=== PATIENT | female | born 1990 | race Caucasian/White ===

== ENCOUNTER 2018-07-19 14:24 | Outpatient (CLI) | payer BC, SELFPAY ==
[2018-07-19 16:16] LABS: FREE T4 1.07 ng/dL (0.76-1.46); TSH 0.95 uIU/mL (0.358-3.74)
== END 2018-07-19 14:44 ==
PROVIDERS: PCP Nurse Practitioner Family; Visit Provider Nurse Practitioner Family
DX: E03.9 Hypothyroidism, unspecified (principal)
CPT/HCPCS: 36415; 84439; 84443

== ENCOUNTER 2018-08-24 13:58 | Outpatient (CLI) | payer BC, SELFPAY ==
[2018-08-24 14:41] LABS: Abs Immature Grans 0.01 k/cumm (0.0-0.09); Absolute Basophil Count 0.02 k/cumm (0.0-0.2); Absolute Eosinophil Count 0.05 k/cumm (0.0-0.7); Absolute Lymphocyte Count 1.17 k/cumm (1.2-3.4); Absolute Monocyte Count 0.37 k/cumm (0.11-0.7); Absolute Neutrophil Count 4.84 k/cumm (1.2-6.7); Basophils % 0.3; Eosinophils % 0.8; HCT 37.4 % (36.0-46.0); HGB 13.3 g/dL (12.0-15.5); Immature Grans % 0.2; Lymphocytes % 18.1; Mean Corp. HGB Concentration 35.6 g/dL (32.0-36.0); Mean Corpuscular Volume 87.2 fL (80-95); Mean Platelet Volume 10.6 fL (8.0-11.0); Monocytes % 5.7; Neutrophils % 74.9; Platelet Count 198 x1000/uL (130-400); RBC 4.29 m/cumm (4.00-5.20); RBC Distribution Width 12.2 % (11.7-14.6); White Blood Cell Count 6.46 k/cumm (4.4-10.8)
[2018-08-24 16:48] LABS: TSH (W/Ref FT4) 5.07 uIU/mL (0.358-3.74)
[2018-08-24 17:58] LABS: FREE T4 1.08 ng/dL (0.76-1.46)
[2018-08-27 09:40] LABS: Hepatitis C Ab w Rflx HCV PCR Negative (NEGAT)
[2018-08-27 11:21] LABS: Hepatitis B Surface Ag Negative (NEGAT)
[2018-08-27 11:26] LABS: HIV-1/2 Ag & Ab Screen Negative (NEGAT)
[2018-08-27 12:13] LABS: Syphilis Serology (RPR) Negative (Negative); Varicella IgG Antibody Positive
[2018-08-27 13:28] LABS: Rubella IgG Ab (UVM) Negative
== END 2018-08-24 14:18 ==
PROVIDERS: PCP Nurse Practitioner Family; Visit Provider Advanced Practice Midwife
DX: Z34.91 Encounter for supervision of normal pregnancy, unspecified, first trimester (principal); Z11.59 Encounter for screening for other viral diseases; Z11.4 Encounter for screening for human immunodeficiency virus [HIV]; Z01.84 Encounter for antibody response examination
CPT/HCPCS: 36415; 80055; 86787; 86803; 86850; 86900; 86901; 87340; 87389; 84439; 84443; 86592; 86762

== ENCOUNTER 2018-08-24 15:06 | Outpatient (REF) | payer BC, SELFPAY ==
[2018-08-24 17:00] LABS: *AMPHETAMINES SCREEN URINE Negative (Negative); *BARBITURATES SCREEN URINE Negative (Negative); *BENZODIAZEPINES SCREEN URINE Negative (Negative); Cannabinoids THC Negative (Negative); Cocaine Screen,Urine Negative (Negative); METHADONE URINE SCREEN Negative (Negative); OPIATES URINE SCREEN Negative (Negative)
[2018-08-24 17:03] LABS: Tricyclic Antidepressants Negative (Negative)
[2018-08-27 15:22] LABS: Chlamydia Result Negative; GC Result Negative; Specimen Description CERVIX
[2018-08-28 10:15] LABS: Buprenorphine Negative; Norbuprenorphine Negative
== END 2018-08-24 15:26 ==
LOC: LBN 15:06
PROVIDERS: PCP Nurse Practitioner Family; Visit Provider Advanced Practice Midwife
DX: Z34.91 Encounter for supervision of normal pregnancy, unspecified, first trimester (principal); Z11.3 Encounter for screening for infections with a predominantly sexual mode of transmission
CPT/HCPCS: 80307; 87491; 87591; 87086

== ENCOUNTER 2018-09-05 15:51 | Outpatient (CLI) | payer BC, SELFPAY ==
[2018-09-05 20:14] LABS: Kit/Specimen SENT
== END 2018-09-05 16:11 ==
PROVIDERS: PCP Nurse Practitioner Family; Visit Provider Advanced Practice Midwife
DX: Z34.91 Encounter for supervision of normal pregnancy, unspecified, first trimester (principal); Z36.89 Encounter for other specified antenatal screening

== ENCOUNTER 2018-10-26 00:48 | Outpatient (CLI) | payer BC, SELFPAY ==
--- NOTE | 2018-10-26 12:55 | DI.US_ITS ---
SYMPTOMS/DIAGNOSIS: 18-WEEK ANATOMY ULTRASOUND, Z34.90 OB ULTRASOUND: Many abnormalities cannot be diagnosed. A normal exam does not exclude a congenital anomaly. Radiology No. [id number] LMP: Exam Date: 10/26/18 [facility] wks days on EDC ([facility]) Confirmed: HISTORY: PREDICTED GESTATIONAL AGE NUMBER 18+1 weeks with a range of 17+1 weeks to 19+1 weeks. 1 Determined by__X_1ST US___LMP___HISTORY PLACENTA PRESENTATION Grade I Cephalic___ Anterior___Posterior_X__ Breech____ Right Left__X Transverse(head right___ Fundal_X__Low-lying___Previa___ Transverse(head left___ Varying__X____ BIOMETRY AMNIOTIC FLUID BPD: 42 mm 18+4 weeks Normal HC: 157 mm 18+4 weeks AC: 120 mm 17+5 weeks FL: 27 mm 18+1 weeks AMNIOTIC FLUID INDEX >26 WK CRL: mm weeks Cisterna Magna: 3 mm CI: 83 RUQ: LUQ Cerebellum: 1.8 cm EFW: 220 grams Percentile: 37th RLQ: LLQ Total: cms Composite AGE= 18+2 wks EDC by US: 03/27/19 BIOPHYSICAL PROFILE ANATOMY IDENTIFIED SCORE 0/2 Heart: 4-Chamber_X__Rate:BPM 153 LVOT:____X RVOT:___X Amniotic Fluid(>2cms)____ Stomach:__X Kidneys:___X____ Respirations (>30 secs) Bladder:__X Post. Fossa:__X Body Flex/Extension 3-vessel cord:__X Ventricles:___X Cord insertion:__X___ Lips:_X___ Extremity Flex/Extension Spinal morphology:_X Nose:_X___ Total Score= Palate:___X____ NS=not seen COMMENTS: The fetus was in variable position. The placenta is fundal and left- sided. The biometric measurements correspond to 18 weeks 2 days and an EDC of March,. The amount of amniotic fluid appears normal. No abnormalities were identified. IMPRESSION: survey is within normal limits.
== END 2018-10-26 01:08 ==
PROVIDERS: PCP Nurse Practitioner Family; Visit Provider Advanced Practice Midwife
DX: Z34.92 Encounter for supervision of normal pregnancy, unspecified, second trimester (principal)
CPT/HCPCS: 76805

== ENCOUNTER 2018-11-16 13:50 | Outpatient (CLI) | payer BC, SELFPAY ==
[2018-11-16 15:02] LABS: TSH (W/Ref FT4) 1.82 uIU/mL (0.358-3.74)
== END 2018-11-16 14:10 ==
PROVIDERS: Advanced Practice Midwife; PCP Nurse Practitioner Family; Visit Provider Obstetrics & Gynecology
DX: Z34.81 Encounter for supervision of other normal pregnancy, first trimester (principal); E03.9 Hypothyroidism, unspecified
CPT/HCPCS: 36415; 80055; 86787; 86803; 86900; 86901; 87340; 87389; 84443; 86592; 86762

== ENCOUNTER 2019-01-04 08:48 | Outpatient (CLI) | payer BC, SELFPAY ==
[2019-01-04 09:29] LABS: Glucose,1 Hr (Glucola) 174 mg/dL (80-140); HCT 33.4 % (36.0-46.0); HGB 11.6 g/dL (12.0-15.5); Mean Corp. HGB Concentration 34.7 g/dL (32.0-36.0); Mean Corpuscular Hemoglobin 31.5 pg (27.0-33.0); Mean Corpuscular Volume 90.8 fL (80-95); Mean Platelet Volume 11.2 fL (8.0-11.0); Platelet Count 161 x1000/uL (130-400); RBC 3.68 m/cumm (4.00-5.20); RBC Distribution Width 12.9 % (11.7-14.6); White Blood Cell Count 6.43 k/cumm (4.4-10.8)
[2019-01-04 10:54] LABS: FREE T4 1.09 ng/dL (0.76-1.46); TSH 1.51 uIU/mL (0.358-3.74)
== END 2019-01-04 09:08 ==
PROVIDERS: Advanced Practice Midwife; PCP Nurse Practitioner Family; Visit Provider Advanced Practice Midwife
DX: Z34.93 Encounter for supervision of normal pregnancy, unspecified, third trimester (principal); E05.00 Thyrotoxicosis with diffuse goiter without thyrotoxic crisis or storm; Z01.84 Encounter for antibody response examination; E03.9 Hypothyroidism, unspecified
CPT/HCPCS: 36415; 82950; 85027; 86850; 90384; 84439; 84443

== ENCOUNTER 2019-01-07 02:26 | Outpatient (CLI) | payer BC, SELFPAY ==
[2019-01-07 12:26] LABS: Glucose 3 Hour 131 mg/dL
[2019-01-07 15:13] LABS: Glucose 1 Hour 164 mg/dL
== END 2019-01-07 02:46 ==
PROVIDERS: PCP Nurse Practitioner Family; Visit Provider Advanced Practice Midwife
DX: Z34.93 Encounter for supervision of normal pregnancy, unspecified, third trimester (principal)
CPT/HCPCS: 36410; 82951

== ENCOUNTER 2019-01-23 11:19 | Outpatient (CLI) | payer BC, SELFPAY ==
[2019-01-25 16:33] LABS: Thyroid Stimulating Immunoglob 4.9 TSI index (<=1.3)
== END 2019-01-23 11:39 ==
PROVIDERS: PCP Nurse Practitioner Family; Visit Provider Obstetrics & Gynecology Maternal & Fetal Medicine
DX: E05.00 Thyrotoxicosis with diffuse goiter without thyrotoxic crisis or storm (principal)
CPT/HCPCS: 36415; 84445

== ENCOUNTER 2019-02-12 00:51 | Outpatient (CLI) | payer BC, SELFPAY ==
--- NOTE | 2019-02-12 08:18 | DI.US_ITS ---
Many abnormalities cannot be diagnosed. A normal exam does not exclude a congenital anomaly. Radiology No. LMP: Exam Date: 02/12/19 [facility] wks days on EDC ([facility]) Confirmed: HISTORY: H/O GRAVES DISEASE, CHECK GOITER AND RENAL SYSTEM,Z86.39 PREDICTED GESTATIONAL AGE NUMBER 33.5 weeks with a range of 32.5 week to 34.5 weeks. 1 Determined by_X__1STUS___LMP___HISTORY Info. pertaining to fetus # PLACENTA PRESENTATION Grade II Cephalic__X_ Anterior___Posterior__X_ Breech____ Right Left Transverse(head right___ Fundal___Low-lying___Previa___ Transverse(head left___ Varying BIOMETRY AMNIOTIC FLUID BPD: mm weeks Normal HC: mm weeks Oligo Polyhydramnios AC: mm weeks FL: mm weeks AMNIOTIC FLUID INDEX >26 WK CRL: mm weeks Cisterna Magna: mm CI: RUQ: LUQ Cerebellum: cm EFW: grams Percentile RLQ: LLQ Total: cms Composite AGE= wks EDC by US___03/28/19 BIOPHYSICAL PROFILE ANATOMY IDENTIFIED SCORE 0/2 Heart: 4-Chamber___Rate:BPM__140___ LVOT: RVOT: Amniotic Fluid(>2cms)____ Stomach: Kidneys:___X____ Respirations (>30 secs) Bladder: X__ Post. Fossa: Body Flex/Extension 3 vessel cord: Ventricles: cord insertion: Lips:____ Extremity Flex/Extension spinal morphology: Nose: Total Score= Palate: NS=not seen Limited OB ultrasound was performed. There is a single living intrauterine gestation. The fetus is in the cephalic presentation. heart rate is 140 beats per minute. A complete anatomic evaluation was not performed at this time. Evaluation of the kidneys shows the AP diameter of the right kidney to measure 0.7 cm. The left renal collecting system is within normal limits. The urinary bladder is unremarkable. The neck could not be well visualized due to the lie of the fetus. Placenta is posterior without evidence of previa. IMPRESSION: Single intrauterine gestation. AP diameter of the right renal collecting system is 0.7 cm. Follow up is recommended. Inadequate visualization of the neck due to the lie.
== END 2019-02-12 01:11 ==
PROVIDERS: PCP Nurse Practitioner Family; Visit Provider Advanced Practice Midwife
DX: O99.283 Endocrine, nutritional and metabolic diseases complicating pregnancy, third trimester (principal); E05.00 Thyrotoxicosis with diffuse goiter without thyrotoxic crisis or storm; Z34.93 Encounter for supervision of normal pregnancy, unspecified, third trimester
CPT/HCPCS: 76815

== ENCOUNTER 2019-02-12 09:46 | Outpatient (CLI) | payer BC, SELFPAY | END 2019-02-12 10:06 | PROVIDERS: PCP Nurse Practitioner Family; Visit Provider Advanced Practice Midwife | DX: O99.283 Endocrine, nutritional and metabolic diseases complicating pregnancy, third trimester (principal); E89.0 Postprocedural hypothyroidism; W88.1XXA Exposure to radioactive isotopes, initial encounter; Z3A.33 33 weeks gestation of pregnancy | CPT/HCPCS: 59025 ==

== ENCOUNTER 2019-02-15 12:51 | Outpatient (CLI) | payer BC, SELFPAY | END 2019-02-15 13:11 | PROVIDERS: PCP Nurse Practitioner Family; Visit Provider Advanced Practice Midwife | DX: O99.283 Endocrine, nutritional and metabolic diseases complicating pregnancy, third trimester (principal); E89.0 Postprocedural hypothyroidism; W88.1XXA Exposure to radioactive isotopes, initial encounter; Z3A.34 34 weeks gestation of pregnancy | CPT/HCPCS: 59025 ==

== ENCOUNTER 2019-02-19 00:31 | Outpatient (CLI) | payer BC, SELFPAY ==
--- NOTE | 2019-02-19 10:27 | DI.US_ITS ---
SYMPTOM/DIAGNOSIS: F/U 02/12, REPEAT, RECHECK GOITER NECK/EFW OB ULTRASOUND: A viable cephalic henderson is demonstrated. The amniotic fluid index is 12.9 The cardiac rate is 152 BPM. The estimated weight is 2282 grams which is at the 22nd percentile. The estimated age is 34 weeks and 2 days. A posterior placenta is noted. Attempts to image thyroid were made. No gross abnormality is seen, however, if there is further specific clinical question then re-evaluation of this patient with a repeat examination at the [facility] could be obtained for further review. Many abnormalities cannot be diagnosed. A normal exam does not exclude a congenital anomaly. Radiology No. [id number] LMP: Exam Date: 02/19/19 [facility] wks on [facility] ([facility]) 03/31/19 Confirmed: HISTORY: PREDICTED GESTATIONAL AGE NUMBER 34 +5 weeks with a range of 33 +5 week to 36 +5 weeks. 1 Determined by XX___1STUS___LMP___HISTORY Info. pertaining to fetus # PLACENTA PRESENTATION Grade II Cephalic__XX_ Anterior___Posterior_XX__ Breech____ Right Left Transverse(head right___ Fundal___Low-lying___Previa___ Transverse(head left___ Varying BIOMETRY AMNIOTIC FLUID BPD: 87 mm 32 +5 weeks Normal HC: 313 mm 33 +6 weeks AC: 300 mm 35 +0 weeks FL: 63 mm 33 +6 weeks AMNIOTIC FLUID INDEX >26 WK CRL: mm weeks Cisterna Magna: mm CI: 84 RUQ:__3.04____LUQ___3.12 Cerebellum: cm EFW: 2282 grams 22% Percentile RLQ:_ 4.46 LLQ___2.30____ Total:__12.9 cms Composite AGE= 34 +2 wks EDC by US__03/31/19 BIOPHYSICAL PROFILE ANATOMY IDENTIFIED SCORE 0/2 Heart: 4-Chamber___Rate:BPM__152 ___ LVOT: RVOT: Amniotic Fluid(>2cms)____ Stomach: Kidneys: Respirations (>30 secs) Bladder:___XX Post. Fossa: Body Flex/Extension 3 vessel cord: Ventricles: cord insertion: Lips:____ Extremity Flex/Extension spinal morphology: Nose: Total Score= Palate: NS=not seen
== END 2019-02-19 00:51 ==
PROVIDERS: PCP Nurse Practitioner Family; Visit Provider Advanced Practice Midwife
DX: Z34.93 Encounter for supervision of normal pregnancy, unspecified, third trimester (principal); Z36.2 Encounter for other antenatal screening follow-up; E05.00 Thyrotoxicosis with diffuse goiter without thyrotoxic crisis or storm
CPT/HCPCS: 76815

== ENCOUNTER 2019-02-19 09:04 | Outpatient (CLI) | payer BC, SELFPAY | END 2019-02-19 09:24 | PROVIDERS: PCP Nurse Practitioner Family; Visit Provider Advanced Practice Midwife | DX: O99.283 Endocrine, nutritional and metabolic diseases complicating pregnancy, third trimester (principal); E89.0 Postprocedural hypothyroidism; W88.1XXA Exposure to radioactive isotopes, initial encounter; Z3A.34 34 weeks gestation of pregnancy | CPT/HCPCS: 59025 ==

== ENCOUNTER 2019-02-19 14:43 | Outpatient (CLI) | payer BC, SELFPAY ==
[2019-02-19 15:28] LABS: HCT 34.7 % (36.0-46.0); HGB 11.8 g/dL (12.0-15.5); Mean Corpuscular Hemoglobin 30.8 pg (27.0-33.0); Mean Corpuscular Volume 90.6 fL (80-95); Mean Platelet Volume 11.7 fL (8.0-11.0); Platelet Count 176 x1000/uL (130-400); RBC 3.83 m/cumm (4.00-5.20); RBC Distribution Width 13.3 % (11.7-14.6); White Blood Cell Count 6.31 k/cumm (4.4-10.8)
[2019-02-19 15:58] LABS: PROTEIN < 6.0 mg/dL
[2019-02-19 16:06] LABS: FREE T4 1.08 ng/dL (0.76-1.46)
[2019-02-19 16:09] LABS: ALT 22 U/L (12-78); AST 15 U/L (15-37); Albumin 2.8 g/dL (3.4-5.0); Alkaline Phosphatase 126 U/L (46-116); Bilirubin, Direct 0.06 mg/dL (0.00-0.20); Bilirubin, Total 0.2 mg/dL (0.2-1.0); CREATININE 0.58 mg/dL (0.55-1.02); TSH 1.16 uIU/mL (0.358-3.74); Total Protein 6.1 g/dL (6.4-8.2); Uric Acid 3.6 mg/dL (2.6-6.0)
[2019-02-19 16:32] LABS: COMMENT (LAB VIEW ONLY) 28.28 mg/dL
== END 2019-02-19 15:03 ==
PROVIDERS: Advanced Practice Midwife; PCP Nurse Practitioner Family; Visit Provider Advanced Practice Midwife
DX: O99.283 Endocrine, nutritional and metabolic diseases complicating pregnancy, third trimester (principal); E03.9 Hypothyroidism, unspecified; Z34.93 Encounter for supervision of normal pregnancy, unspecified, third trimester
CPT/HCPCS: 36415; 80076; 85027; 82565; 84156; 84439; 84443; 84550

== ENCOUNTER 2019-02-22 13:16 | Outpatient (CLI) | payer BC, SELFPAY | END 2019-02-22 13:36 | PROVIDERS: PCP Nurse Practitioner Family; Visit Provider Advanced Practice Midwife | DX: O99.283 Endocrine, nutritional and metabolic diseases complicating pregnancy, third trimester (principal); E89.0 Postprocedural hypothyroidism; W88.1XXA Exposure to radioactive isotopes, initial encounter | CPT/HCPCS: 59025 ==

== ENCOUNTER 2019-02-26 07:12 | Outpatient (CLI) | payer BC, SELFPAY | END 2019-02-26 07:32 | PROVIDERS: PCP Nurse Practitioner Family; Visit Provider Advanced Practice Midwife | DX: O99.283 Endocrine, nutritional and metabolic diseases complicating pregnancy, third trimester (principal); O36.5930 Maternal care for other known or suspected poor fetal growth, third trimester, not applicable or unspecified; E89.0 Postprocedural hypothyroidism; W88.1XXA Exposure to radioactive isotopes, initial encounter; Z3A.35 35 weeks gestation of pregnancy | CPT/HCPCS: 59025; 87081 ==

== ENCOUNTER 2019-03-01 07:39 | Outpatient (CLI) | payer BC, SELFPAY | END 2019-03-01 07:59 | PROVIDERS: PCP Nurse Practitioner Family; Visit Provider Advanced Practice Midwife | DX: O99.283 Endocrine, nutritional and metabolic diseases complicating pregnancy, third trimester (principal); E89.0 Postprocedural hypothyroidism; W88.1XXA Exposure to radioactive isotopes, initial encounter; Z3A.36 36 weeks gestation of pregnancy | CPT/HCPCS: 59025 ==

== ENCOUNTER 2019-03-05 10:17 | Outpatient (CLI) | payer BC, SELFPAY | END 2019-03-05 10:37 | PROVIDERS: PCP Nurse Practitioner Family; Visit Provider Advanced Practice Midwife | DX: O99.283 Endocrine, nutritional and metabolic diseases complicating pregnancy, third trimester (principal); E89.0 Postprocedural hypothyroidism; W88.1XXA Exposure to radioactive isotopes, initial encounter; Z3A.36 36 weeks gestation of pregnancy | CPT/HCPCS: 59025 ==

== ENCOUNTER 2019-03-08 14:07 | Outpatient (CLI) | payer BC, SELFPAY | END 2019-03-08 14:27 | PROVIDERS: PCP Nurse Practitioner Family; Visit Provider Advanced Practice Midwife | DX: O99.283 Endocrine, nutritional and metabolic diseases complicating pregnancy, third trimester (principal); E89.0 Postprocedural hypothyroidism; Z3A.37 37 weeks gestation of pregnancy | CPT/HCPCS: 59025 ==

== ENCOUNTER 2019-03-12 08:00 | Outpatient (CLI) | payer BC, SELFPAY | END 2019-03-12 08:20 | PROVIDERS: PCP Nurse Practitioner Family; Visit Provider Advanced Practice Midwife | DX: O99.283 Endocrine, nutritional and metabolic diseases complicating pregnancy, third trimester (principal); E89.0 Postprocedural hypothyroidism; W88.1XXA Exposure to radioactive isotopes, initial encounter; Z3A.37 37 weeks gestation of pregnancy | CPT/HCPCS: 59025 ==

== ENCOUNTER 2019-03-15 14:09 | Outpatient (CLI) | payer BC, SELFPAY | END 2019-03-15 14:29 | PROVIDERS: PCP Nurse Practitioner Family; Visit Provider Advanced Practice Midwife | DX: O99.283 Endocrine, nutritional and metabolic diseases complicating pregnancy, third trimester (principal); E89.0 Postprocedural hypothyroidism; W88.1XXA Exposure to radioactive isotopes, initial encounter; O36.8130 Decreased fetal movements, third trimester, not applicable or unspecified; Z3A.38 38 weeks gestation of pregnancy | CPT/HCPCS: 59025 ==

== ENCOUNTER 2019-03-19 01:06 | Outpatient (CLI) | payer BC, SELFPAY ==
--- NOTE | 2019-03-19 06:47 | DI.US_ITS ---
Predicted Gestational Age: Indication/History:GRAVES DISEASE,E03.9,Z86.39, SIZE LESS THAN DATES, CHECK GROWTH AND TESS 38.5 Wks Range: 37.5 to 39.5 Prior US done on: Determined by: First US X LMP History EDC by prior US: 03/28/19 For multiple gestations: Baby PLACENTA: Grade: II Location: Anterior Posterior X PRESENTATION: RT LT LOW LYING PREVIA Cephalic X Trans (Head RT LT ) Varied Breech BIOMETRY: Anatomy Identified: BPD: 94 mm 38.2 wks 4 chamber Heart Heart Rate 155 BPM HC: 332 mm 37.6 wks LVOT Post Fossa AC: 341 mm 38.0 wks RVOT Ventricles FL: 74 mm 37.4 wks Stomach Nose Bladder Lips Cisterna Magna: mm CI: 84 Kidneys Palate Cerebellum: mm 3 vessel cord Spine EFW: 3343 grms 47TH % Cord Insertion NS= not seen Composite Age (US) 38.0 wks Many abnormalities cannot be diagnosed. A normal exam does not exclude congenital abnormality. EDC by US 04/02/19 Amniotic Fluid Index: Normal COMMENTS: RUQ: 3.69 LUQ: 3.55 RLQ: 3.46 LLQ: 2.74 Total: 13.4 cm Biophysical Profile: Score 0/2 TESS (>2cm) 2___ Respirations (>30 sec) 2___ Body flexion/extension 2___ Extremity flexion/extension 2__ TOTAL SCORE ____8____ The biophysical profile is normal with a total score of 8. IMPRESSION: Normal biophysical profile. Comparison is made with 02/19/19. The fetus is in cephalic position. The placenta is posterior. The biometric measurements correspond to 38 weeks 0 days. The estimated weight is 3343 grams, near the 50th percentile. The amniotic fluid index is normal at 13.4. IMPRESSION: size and weight as well as TESS are within the normal range.
== END 2019-03-19 01:26 ==
PROVIDERS: PCP Nurse Practitioner Family; Visit Provider Advanced Practice Midwife
DX: O99.283 Endocrine, nutritional and metabolic diseases complicating pregnancy, third trimester (principal); E03.9 Hypothyroidism, unspecified; O26.843 Uterine size-date discrepancy, third trimester
CPT/HCPCS: 76815; 76816; 76819

== ENCOUNTER 2019-03-19 07:33 | Outpatient (CLI) | payer BC, SELFPAY | END 2019-03-19 07:53 | PROVIDERS: PCP Nurse Practitioner Family; Visit Provider Advanced Practice Midwife | DX: O99.283 Endocrine, nutritional and metabolic diseases complicating pregnancy, third trimester (principal); E89.0 Postprocedural hypothyroidism; W88.1XXA Exposure to radioactive isotopes, initial encounter; Z3A.38 38 weeks gestation of pregnancy | CPT/HCPCS: 59025 ==

== ENCOUNTER 2019-03-22 13:35 | Outpatient (CLI) | payer BC, SELFPAY | END 2019-03-22 13:55 | PROVIDERS: PCP Nurse Practitioner Family; Visit Provider Advanced Practice Midwife | DX: O99.283 Endocrine, nutritional and metabolic diseases complicating pregnancy, third trimester (principal); E89.0 Postprocedural hypothyroidism; W88.1XXA Exposure to radioactive isotopes, initial encounter; Z3A.39 39 weeks gestation of pregnancy | CPT/HCPCS: 59025 ==

== ENCOUNTER 2019-03-26 07:26 | Outpatient (CLI) | payer BC, SELFPAY ==
--- NOTE | 2019-03-26 12:23 | DI.US_ITS ---
SYMPTOMS/DIAGNOSIS: VARIABLE DECEL, BEDSIDE TESS IN CENTER 4.9, ? OLIGO OB ULTRASOUND: Predicted Gestational Age: Indication/History: 39+5 Wks Range: 38+5 to 40+5 Prior US done on: Determined by: First US LMP History EDC by prior US: 03/28/19 For multiple gestations: Baby PLACENTA: Grade: I Location: Anterior X Posterior PRESENTATION: RT LT LOW LYING PREVIA X FUNDAL Cephalic X Trans (Head RT LT ) Varied Breech BIOMETRY: Anatomy Identified: BPD: 97 mm 39+6 wks 4 chamber Heart Heart Rate 145 BPM HC: 348 mm 40+3 wks LVOT Post Fossa AC: 353 mm 39+2 wks RVOT Ventricles FL: 78 mm 39+5 wks Stomach Nose Bladder Lips Cisterna Magna: mm CI: 85 Kidneys Palate Cerebellum: mm 3 vessel cord Spine EFW: 3817 grms 71% Cord Insertion NS= not seen Composite Age (US) 39+6 wks Many abnormalities cannot be diagnosed. A normal exam does not exclude congenital abnormality. EDC by US 03/27/19 Amniotic Fluid Index: Oligo Normal COMMENTS: Some hydro seen, rt kidney wi renal pelvis = 0.9 cm. Normal- appearing lt kidney RUQ: 1.9 LUQ: 1.3 RLQ: 1.9 LLQ: 0 Total: cm Biophysical Profile: Score 0/2 TESS (>2cm) Respirations (>30 sec) Body flexion/extension Extremity flexion/extension TOTAL SCORE A cephalic intrauterine henderson is demonstrated. The amniotic fluid index is 5.1, which is borderline normal. The measurements suggest a gestational age of 39 weeks and 6 days. The cardiac rate is 145 beats per minute. Note is made of apparent severe right hydronephrosis and considerable dilatation of the proximal right ureter. The left kidney appears unremarkable. These findings were conveyed to the patient's caregiver immediately following the examination.
== END 2019-03-26 07:46 ==
PROVIDERS: PCP Nurse Practitioner Family; Visit Provider Advanced Practice Midwife
DX: O36.8331 Maternal care for abnormalities of the fetal heart rate or rhythm, third trimester, fetus 1 (principal); O35.8XX1 Maternal care for other (suspected) fetal abnormality and damage, fetus 1; Z34.93 Encounter for supervision of normal pregnancy, unspecified, third trimester; O99.283 Endocrine, nutritional and metabolic diseases complicating pregnancy, third trimester; E89.0 Postprocedural hypothyroidism; W88.1XXA Exposure to radioactive isotopes, initial encounter; Z3A.35 35 weeks gestation of pregnancy
CPT/HCPCS: 76816; 59025

== ENCOUNTER 2019-03-26 13:30 | Inpatient (IN) | payer BC, SELFPAY ==
[2019-03-26 15:01] LABS: HCT 34.9 % (36.0-46.0); Mean Corp. HGB Concentration 34.4 g/dL (32.0-36.0); Mean Corpuscular Volume 90.2 fL (80-95); Mean Platelet Volume 12.1 fL (8.0-11.0); Platelet Count 185 x1000/uL (130-400); RBC 3.87 m/cumm (4.00-5.20); RBC Distribution Width 13.2 % (11.7-14.6); White Blood Cell Count 6.22 k/cumm (4.4-10.8)
[2019-03-26] MEDS: Acetaminophen 500 MG TAB PO ×2 (15:09→19:34)
[2019-03-26] MEDS: Normal Saline Flush 10 ML SYR (15:14)
[2019-03-26] MEDS: Penicillin G POT. 5,000,000 UNITS in Normal Saline 100 ML 200 UNITS IVPB (16:29)
[2019-03-26] MEDS: Lactated Ringers 1,000 ML 30 ML IV (16:40)
[2019-03-26] MEDS: Normal Saline Flush 10 ML SYR IVP ×2 (17:50→18:34)
[2019-03-27] MEDS: Normal Saline Flush 10 ML SYR IVP ×3 (08:43→19:44)
[2019-03-27] MEDS: Levothyroxine 100 MCG TAB PO (08:55)
[2019-03-27] MEDS: miSOPROStol 50 MCG TAB PO ×2 (08:58→13:51)
[2019-03-27] MEDS: buPROPion-XL 150 MG TABCR 300 MG PO (09:35)
[2019-03-27] MEDS: Acetaminophen 500 MG TAB PO (15:31)
[2019-03-27] MEDS: miSOPROStol 25 MCG TAB PO ×4 (18:19→23:52)
[2019-03-28] MEDS: Ibuprofen 600 MG TAB PO ×3 (04:21→17:31)
[2019-03-28] MEDS: Levothyroxine 200 MCG TAB PO (08:02)
[2019-03-28] MEDS: buPROPion-XL 150 MG TABCR 300 MG PO (08:03)
[2019-03-28] MEDS: Acetaminophen 500 MG TAB PO ×2 (13:56→18:52)
[2019-03-28] MEDS: Docusate Sodium 100 MG CAP PO (17:31)
[2019-03-28] MEDS: Measles, Mumps, & Rubella Vaccine 0.5 ML VIAL SC (17:33)
[2019-03-29] MEDS: Levothyroxine 200 MCG TAB PO (07:42)
[2019-03-29] MEDS: buPROPion-XL 150 MG TABCR 300 MG PO (07:42)
[2019-03-29] MEDS: Ibuprofen 600 MG TAB PO (09:42)
== END 2019-03-29 13:35 | disposition home or self-care (01) | DRG 807 ==
PROVIDERS: Admitting Provider Advanced Practice Midwife; PCP Nurse Practitioner Family; Visit Provider Advanced Practice Midwife
DX: O69.81X0 Labor and delivery complicated by cord around neck, without compression, not applicable or unspecified (principal); Z37.0 Single live birth; Z3A.39 39 weeks gestation of pregnancy; O77.0 Labor and delivery complicated by meconium in amniotic fluid; O70.0 First degree perineal laceration during delivery; O62.1 Secondary uterine inertia; O99.824 Streptococcus B carrier state complicating childbirth; O99.284 Endocrine, nutritional and metabolic diseases complicating childbirth; O99.344 Other mental disorders complicating childbirth; E89.0 Postprocedural hypothyroidism; F41.9 Anxiety disorder, unspecified; Z29.13 Encounter for prophylactic Rho(D) immune globulin; O76 Abnormality in fetal heart rate and rhythm complicating labor and delivery
CPT/HCPCS: 36415; 85027; 85461; 86850; 86900; 86901; 90384; 90471; 59200; 86870; J2540; J2790; J3490

== ENCOUNTER 2019-05-27 15:20 | Outpatient (REF) | payer BC, SELFPAY ==
--- NOTE | 2019-05-27 14:10 | PAPFT_PTH ---
PATIENT: Darcie Mccullough LOC: [facility] U#:[id number] AGE/SX: 29/F ROOM: RE05/27/[address]: Dontrell Alvarez CNM : 1990 BED: DIS: 05/27/2019 SPEC #: [id number] RECD: 05/27/19 15:41 STATUS: SHELLIE REQ #: [id number] BERE: 05/27/19 14:[address]: Dontrell Alvarez DEPT: [facility] Cytology RECD BY: Kylie Bustamante ENTERED: 05/27/19 15:41 SP TYPE: PAPFT OTHR DR: KEENA Leach Tissues: 1 - CX/ENDOCX FOR PAP SMEARS Procedures: PAP THIN PREP/UVM Screening Comments: [id number]
== END 2019-05-27 15:40 ==
LOC: LBN 15:20
PROVIDERS: PCP Nurse Practitioner Family; Visit Provider Advanced Practice Midwife
DX: Z12.4 Encounter for screening for malignant neoplasm of cervix (principal)
CPT/HCPCS: 88142

== ENCOUNTER 2019-09-05 09:36 | Outpatient (CLI) | payer BC, SELFPAY ==
[2019-09-05 10:37] LABS: TSH (W/Ref FT4) 0.16 uIU/mL (0.36-3.74)
[2019-09-05 11:31] LABS: FREE T4 1.52 ng/dL (0.76-1.46)
== END 2019-09-05 09:56 ==
PROVIDERS: PCP Nurse Practitioner Adult Health; Visit Provider Nurse Practitioner Adult Health
DX: E03.9 Hypothyroidism, unspecified (principal)
CPT/HCPCS: 36415; 84439; 84443

== ENCOUNTER 2019-11-05 09:46 | Outpatient (CLI) | payer BC, SELFPAY ==
[2019-11-05 12:50] LABS: TSH (W/Ref FT4) 1.83 uIU/mL (0.36-3.74)
== END 2019-11-05 10:06 ==
PROVIDERS: PCP Nurse Practitioner Adult Health; Visit Provider Nurse Practitioner Adult Health
DX: E03.9 Hypothyroidism, unspecified (principal); R79.89 Other specified abnormal findings of blood chemistry
CPT/HCPCS: 36415; 84443

== ENCOUNTER 2020-10-14 03:18 | Outpatient (CLI) | payer BC, SELFPAY ==
[2020-10-14 10:16] LABS: TSH (W/Ref FT4) 1.45 uIU/mL (0.36-3.74)
== END 2020-10-14 03:38 ==
PROVIDERS: PCP Nurse Practitioner Adult Health; Visit Provider Nurse Practitioner Adult Health
DX: E03.8 Other specified hypothyroidism (principal)
CPT/HCPCS: 36415; 84443

== ENCOUNTER 2021-08-24 13:35 | Outpatient (REF) | payer BC, SELFPAY ==
--- NOTE | 2021-08-24 13:15 | PAPFT_PTH ---
PATIENT: Darcie Mccullough LOC: [facility] U#:[id number] AGE/SX: 31/F ROOM: RE08/24/[address]: KEENA Armas : 1990 BED: DIS: 08/24/2021 SPEC #: [id number] RECD: 08/24/21 18:25 STATUS: SHELLIE REQ #: [id number] BERE: 08/24/21 13:[address]: Ruchi Romero DEPT: [facility] Cytology RECD BY: Denise Santa ENTERED: 08/24/21 18:26 SP TYPE: PAPFT OTHR DR: Justina Menendez APRN Tissues: 1 - CX/ENDOCX FOR PAP SMEARS Procedures: PAP THIN PREP/UVM Screening HPV DNA PROBE Comments: [id number]
== END 2021-08-24 13:36 | disposition home or self-care (01) ==
LOC: LBN 13:35
PROVIDERS: PCP Nurse Practitioner Adult Health; Visit Provider Nurse Practitioner Family
DX: Z12.4 Encounter for screening for malignant neoplasm of cervix (principal); Z11.51 Encounter for screening for human papillomavirus (HPV)
CPT/HCPCS: 88142; 87624

== ENCOUNTER 2022-01-20 03:42 | Outpatient (CLI) | payer BC, SELFPAY ==
[2022-01-20 14:25] LABS: BUN 14 mg/dL (7-18); Calcium 9.1 mg/dL (8.5-10.1); Chloride 106 mmol/L (98-107); Glucose 89 mg/dL (74-106); Potassium 4.3 mmol/L (3.5-5.1); Sodium 140 mmol/L (136-145); TSH (W/Ref FT4) 1.12 uIU/mL (0.36-3.74)
== END 2022-01-20 03:43 | disposition home or self-care (01) ==
LOC: LBO 03:43
PROVIDERS: PCP Nurse Practitioner Adult Health; Visit Provider Nurse Practitioner Adult Health
DX: E03.8 Other specified hypothyroidism (principal); F41.1 Generalized anxiety disorder; G43.839 Menstrual migraine, intractable, without status migrainosus; Z51.81 Encounter for therapeutic drug level monitoring
CPT/HCPCS: 36415; 80048; 84443

== ENCOUNTER 2023-01-04 03:01 | Outpatient (CLI) | payer BC, SELFPAY ==
[2023-01-04 08:56] LABS: Abs Immature Grans 0.02 10^3/uL (0.0-0.06); Absolute Basophil Count 0.03 10^3/uL (0.0-0.2); Absolute Eosinophil Count 0.11 10^3/uL (0.0-0.7); Absolute Lymphocyte Count 1.31 10^3/uL (1.2-3.4); Absolute Monocyte Count 0.52 10^3/uL (0.1-0.8); Absolute Neutrophil Count 4.31 10^3/uL (1.2-6.7); Basophils % 0.5; Eosinophils % 1.7; HCT 37.9 % (36.0-46.0); HGB 12.5 g/dL (11.2-15.7); Immature Grans % 0.3; Lymphocytes % 20.8; MCV 88 fL (80-95); MPV 10.1 fL (8.0-11.0); Monocytes % 8.3; Neutrophils % 68.4; Platelet Count 220 10^3/uL (130-400); RBC 4.31 10^6/uL (3.93-5.22); RDW-SD 38.7 fL
[2023-01-04 09:34] LABS: ALT 18 U/L (14-59); AST 11 U/L (15-37); Albumin 3.9 g/dL (3.4-5.0); Alkaline Phosphatase 67 U/L (46-116); Anion Gap 6.1 mmol/L (3-11); BUN 11 mg/dL (7-18); Bilirubin, Total 0.3 mg/dL (0.2-1.0); CO2 29.9 mmol/L (21.0-32.0); CREATININE 0.9 mg/dL (0.55-1.02); Calcium 8.9 mg/dL (8.5-10.1); Calculated LDL 91 mg/dL (<100); Chloride 105 mmol/L (98-107); Cholesterol 170 mg/dL (<200); Estimated GFR 87.65 (mL/min/1.73m2); Folate 16.2 ng/mL (8.6-20.0); Glucose 99 mg/dL (74-106); HDL Cholesterol 63 mg/dL (40-60); Potassium 4.5 mmol/L (3.5-5.1); Sodium 141 mmol/L (136-145); TSH (W/Ref FT4) 0.34 uIU/mL (0.36-3.74); Total Protein 7.1 g/dL (6.4-8.2); Triglyceride 81 mg/dL (<150); Vitamin B12 653 pg/mL (193-986)
[2023-01-04 09:50] LABS: FREE T4 1.17 ng/dL (0.76-1.46)
== END 2023-01-04 03:02 | disposition home or self-care (01) ==
PROVIDERS: PCP Nurse Practitioner Adult Health; Visit Provider Nurse Practitioner Adult Health
DX: E03.9 Hypothyroidism, unspecified (principal); R41.89 Other symptoms and signs involving cognitive functions and awareness; Z00.00 Encounter for general adult medical examination without abnormal findings; Z13.1 Encounter for screening for diabetes mellitus; Z13.220 Encounter for screening for lipoid disorders
CPT/HCPCS: 36415; 80053; 80061; 82607; 82746; 84439; 84443; 85025

== ENCOUNTER 2024-06-06 17:38 | Emergency (ER) | payer BC, SELFPAY ==
[2024-06-06 17:41] VITALS: BP 141/100; PULSE 87; RESP 16; TEMP 36.9; O2SAT 100
--- OUTSIDE RECORDS SUMMARY | 2024-06-06 17:46 | XMS_ITS | Encounter Summary ---
Author Organization [facility] Address [facility] [place] [address] Care Team Providers Care Potato Chip Processing Supervisor Name Role Phone Justina Menendez APRN Primary Care Provider [phone] Reason for Visit * Reason Onset Date Comments Labs Only 07/05/2012 Encounter Details Date Type Department Care Team (Late st Contact Info) Description 07/05/2012 [place] [address] [facility] [place] [address] Labs Only Social History Tobacco Use Types Packs/Day Years Used Date Smoking Tobacco: Never Smokeless Tobacco: Never Alcohol Use Standard Drinks/Week Comments No 0 (1 standard drink = 0.6 oz pur e alcohol) Sex and Gender Information Value Date Recorded Sex Assigned at Not on file Gender Identity Not on file Sexual Orientation Not on file documented as of this encounter Miscellaneous Notes * Telephone Encounter - Nicky Baumann RN - 07/05/2012 3:46 PM EDT The mother of this patient called to say that Darcie had some labwork today and the results were faxed to Dr. Sesay. The TSH was 53.24 ! It was run twice by the lab. Dr. Sesay was given the faxed results and the phone number for this patient. [phone] documented in this encounter Plan of Treatment Not on file documented as of this encounter Visit Diagnoses Not on filedocumented in this encounter Care Teams Potato Chip Processing Supervisor Relationship Specialty Start Date End Date Justina Menendez APRN [address] [place] [address] PCP - General 12/30/11 01/13/19 documented as of this encounter
--- OUTSIDE RECORDS SUMMARY | 2024-06-06 17:46 | XMS_ITS | Encounter Summary ---
Author Organization Replaced By [facility] Address [facility] [place] [address] Care Team Providers Care Hydraulic Governor Assembler Name Role Phone Justina Menendez APRN Primary Care Provider [phone] Encounter Details Date Type Department Care Team (Late st Contact Info) Description 08/13/2012 External Results [place] [phone] Provider, Scanning Social History Tobacco Use Types Packs/Day Years Used Date Smoking Tobacco: Never Smokeless Tobacco: Never Alcohol Use Standard Drinks/Week Comments No 0 (1 standard drink = 0.6 oz pur e alcohol) Sex and Gender Information Value Date Recorded Sex Assigned at Not on file Gender Identity Not on file Sexual Orientation Not on file documented as of this encounter Plan of Treatment Not on file documented as of this encounter Procedures Procedure Name Priority Date/Time Associated Diagnosis Comments LAB SCAN Routine 08/11/2012 documented in this encounter Results * Scan Doc: Lab (08/11/2012) Scanning Provider MEDIA MGR SCAN EXT O RDR/RSLT documented in this encounter Visit Diagnoses Not on filedocumented in this encounter Care Teams Hydraulic Governor Assembler Relationship Specialty Start Date End Date Justina Menendez APRN [address] [place] [id number] PCP - General 12/30/11 01/13/19 documented as of this encounter
--- OUTSIDE RECORDS SUMMARY | 2024-06-06 17:46 | XMS_ITS | Encounter Summary ---
Author Organization [facility] Address [facility] [place] [address] Care Team Providers Care Cosmetic Surgeon Name Role Phone Justina Menendez APRN Primary Care Provider [phone] Reason for Visit * Reason Comments Follow-up Encounter Details Date Type Department Care Team (Late st Contact Info) Description 08/13/2012 9:30 AM EDT Office Visit [place] [address] Jasmin Monreal MD [facility] [place] [address] Hyperthyroidism (Primary Dx) Discharge Disposition: Home Social History Tobacco Use Types Packs/Day Years Used Date Smoking Tobacco: Never Smokeless Tobacco: Never Alcohol Use Standard Drinks/Week Comments No 0 (1 standard drink = 0.6 oz pur e alcohol) Sex and Gender Information Value Date Recorded Sex Assigned at Not on file Gender Identity Not on file Sexual Orientation Not on file documented as of this encounter Last Filed Vital Signs Vital Sign Reading Time Taken Comments Blood Pressure 108/71 08/13/2012 9:25 AM EDT Pulse 81 08/13/2012 9:25 AM EDT Temperature - - Respiratory Rate - - Oxygen Saturation - - Inhaled Oxygen Concentration - - Weight 69.3 kg (152 lb 12.8 oz) 08/13/2012 9:25 AM EDT Height 162.6 cm (5' 4) 08/13/2012 9:25 AM EDT Body Mass Index 26.23 08/13/2012 9:25 AM EDT documented in this encounter Patient Instructions * Patient Instructions* Jasmin Monreal MD - 08/13/2012 9:58 AM EDT tsh 10.99 (0.36-3.7), free T4 1.2 (0.76-1.46) Increase levothyroxine 0.125 mg/d (use up 0.1 mg tablets- 2 tabs 2 days/week, 1 tablet 5 days/week) Labs in 2 months- TSH documented in this encounter Progress Notes * Jasmin Monreal MD - 08/11/2012 10:35 PM EDT PRIMARY CARE PROVIDER: EYAD Blas CC: hyperthyroidism- Graves' f/u HISTORY OF PRESENT ILLNESS: Darcie is a 22-year-old woman who was diagnosed with Graves' disease in early 2010 when she presented with suppressed TSH, elevated free T3, insomnia, anxiety, increased appetite, tremor, and palpitations. She was treated with methimazole for a year and in 11/2011 was euthyroid. By February, she had recurrence of her hyperthyroidism, and in April, underwent radioactive iodine ablation with 9.8 mCi of I-131. Prior to the ablation, methimazole was started at a low dose. She stopped it a week before I- 131tx and has not restarted it. She was on atenolol as well and the dose was lowered to 25 mg after the ablation Since her last visit, Darcie has become hypothyroid. In June, TSH was 53.24 and she was quite symptomatic. We started levothyroxine 100 mcg a day. She is really noticing she is feeling better, much less fatigue, still having some myalgias. On a scale of 1 to 10, she is about an 8/10 now; with the hypothyroidism, she was a 4/10 or 5/10. So, she is really feeling much better. She is continuing in school, a senior studying business and still working as a data collection technician, so she is quite busy but able to get through her day now. Denies nervousness, irritability, tremor, palpitations, heat intolerance, change in her weight, hair, skin, mood, balance, myalgias. She is taking her thyroid on an empty stomach and doing well with it. PAST MEDICAL HISTORY: Hypothyroidism and migraine headaches. PAST SURGICAL HISTORY: [place] teeth extraction. Current outpatient prescriptions ordered prior to encounter Medication Sig Dispense Refill ??? RIZATRIPTAN BENZOATE (MAXALT ORAL) ??? ibuprofen (ADVIL) 200 mg tablet No Known Allergies PHYSICAL EXAMINATION: Blood pressure 108/71, pulse 81, weight 152 pounds, height 5 feet 4 inches. In general, she looks well. HEENT: Extraocular movements intact. No lid lag or stare. No periorbital edema. Her neck is supple. Her thyroid gland is small, 15 g, mobile, nontender. No nodules. Skin: Smooth, warm, dry. On neurologic exam, motor strength and tone are normal. There is no tremor. Deep tendon reflexes are 2+ and symmetrical. Laboratory tests from August 11; TSH 10.99, free T4 1.2 (normal 0.76-1.46). IMPRESSION: Hyperthyroidism related to Graves disease with [id number] hypothyroidism. Clinically, Darcie is feeling better, but she is still mildly hypothyroid. We will increase her levothyroxine to 125 mcg a day. She will check TSH in two months at her local hospital and if she is euthyroid, then she will follow up regularly with Dr. Menendez. If she is still hyperthyroid, we will adjust the dose of levothyroxine appropriately. PLAN: 1. Increase levothyroxine to 125 mcg a day. 2. Check TSH in two months. 3. Followup will depend on result of those laboratory tests. documented in this encounter Plan of Treatment Not on file documented as of this encounter Visit Diagnoses Diagnosis Hyperthyroidism- Primary Thyrotoxicosis without mention of goiter or other cause, without mention of thyrotoxic crisis or storm documented in this encounter Care Teams Cosmetic Surgeon Relationship Specialty Start Date End Date Justina Menendez APRN [address] [place] [address] PCP - General 12/30/11 01/13/19 documented as of this encounter
--- OUTSIDE RECORDS SUMMARY | 2024-06-06 17:46 | XMS_ITS | Encounter Summary ---
Author Organization [facility] Address [facility] [place] [address] Care Team Providers Care Asset Coordinator Name Role Phone Justina Menendez APRN Primary Care Provider [phone] Reason for Visit * Reason Comments Thyroid Problem Encounter Details Date Type Department Care Team (Late st Contact Info) Description 12/30/2011 10:00 AM EST Office [place] [address] Bhakti Warner MD [facility] [place] [address] Grave's disease (Primary Dx) Discharge Disposition: Home Social History [...] Sign Reading Time Taken Comments Blood Pressure 120/78 12/30/2011 9:57 AM EST Pulse 79 12/30/2011 9:57 AM EST Temperature - - Respiratory Rate - - Oxygen Saturation - - Inhaled Oxygen Concentration - - Weight 68 kg (150 lb) 12/30/2011 9:57 AM EST Height 162.6 cm (5' 4) 12/30/2011 9:57 AM EST Body Mass Index 25.75 12/30/2011 9:57 AM EST documented in this encounter Progress Notes * Jasmin Monreal MD - 12/30/2011 10:45 AM EST I saw this patient with Dr. Warner . I reviewed the bradshaw portions of the history and physical exam, and reviewed pertinent lab data. I answered all patient questions. I was involved in all medical decision making and agree with this plan. Darcie is a young woman with Graves' disease who has completed about 1 yr of medical treatment with methimazole. She is clinically euthyroid today and TSH last month was normal. She will stop methimazole and repeat TSH in about 6-8 weeks. She will call if she develops symptoms of hyperthyroidism. * TimmyBhakti ritchie - 12/30/2011 10:12 AM EST Subjective: Patient ID: Darcie Gonzalez is a 21 y.o. female here for f/u of Graves' disease. HPI Darcie Gonzalez is a 21 y.o. female referred here in December 2010 for abnormal thyroid functiontests. She was [facility] at the [facility] where a screening TSH was noted to be low at 0.18. This was done due to some symptoms she has been experiencing for the last 6 months. These included new insomnia, heat and cold intolerance, anxiety, increased appetite without weight loss or gain,hand tremors and heart racing. Her director of vital statistics then ran some additional tests which were remarkable for upper limit of normal T4 at 12.2, slight elevation of T3 at 202, and normal Free T4 of 0.99. Her thyroid gland was normal in size and we repeated her TFT's which showed low TSH of 0.03, elevated Free T4 of 1.66, elevated Free T3 of 5.3, positive TSI of 1.7 and positive anti- TPO antibody titre of 76. She was started on Methimazole 10 mg po daily for mild Graves' disease. She ultimately required 15 mg per day of MMI but then became hypothyroid and TSH has remained in normal range so we have gradually decreased her dose of MMI to 2.5 mg daily. Denies neck swelling, constipation, fatigue, cold intolerance. Denies heart racing or anxiety, insomnia, heat intolerance. Has a slight tremor thatshe feels is just her baseline. Review of Systems All other systems reviewed and are negative. Patient Active Problem List Diagnoses Code ??? Grave's disease 242.00AD ??? Migraine 346.90A Current outpatient prescriptions ordered prior to encounter Medication Sig Dispense Refill ??? methimazole (TAPAZOLE) 5 mg tablet Take 0.5 tablets by mouth daily. 30 tablet 11 ??? RIZATRIPTAN BENZOATE (MAXALT ORAL) ??? ibuprofen (ADVIL) 200 mg tablet ??? NORETHINDRONE ACETATE ORAL ??? CYPROHEPTADINE HCL (CYPROHEPTADINE ORAL) No Known Allergies Objective: Physical Exam BP 120/78 Pulse 79 Ht 162.6 cm (5' 4) Wt 68.04 kg (150 lb) BMI 25.75 kg/m2 General: NAD, AAOx3 HEENT: EOMI, anicteric, PERRL, no exoophthalmous or eye irritation Neck: No LAD, no thyromegaly, approximate size 15 grams, no thyroid nodules, normal consistency, symmetrical, no tenderness, no bruit CV: S1 S2, RRR, no m/r/g Lungs: CTABL Neuro: reflexes 2+ bilaterally, fine tremor of hands Labs 11/10/11: TSH 0.68 Free T4 0.92 Assessment and Plan: Graves' disease: Currently in remission. We discussed stopping her methimazole. Will get repeat TSHin 2 months and intermittently thereafter. If her Graves' should come back, we would need to discuss definitive treatment with radioactive iodine ablation or thyroidectomy prior to her having children. She feels this is far enough away that she might go back on methimazole if that is needed and then have definitive treatment at a later date. I have not scheduled a followup appointment. She and I will discuss labs in February and she will callif any recurrent sx. All questions answered and patient voiced good understanding of the plan. Patient seen and discussed with Dr. Monreal. Bhakti Warner MD Endocrinology Fellow [facility] Section of Endocrinology documented in this encounter Plan of Treatment Not on file documented as of this encounter Visit Diagnoses Diagnosis Grave's disease- Primary Toxic diffuse goiter without mention of thyrotoxic crisis or storm documented in this encounter Care Teams Asset Coordinator Relationship Specialty Start Date End Date Justina Menendez APRN [address] [place] [address] PCP - General 12/30/11 01/13/19 documented as of this encounter
--- OUTSIDE RECORDS SUMMARY | 2024-06-06 17:46 | XMS_ITS | Encounter Summary ---
Author Organization [facility] Address [facility] [place] [address] Care Team Providers Care Construction Technology Instructor Name Role Phone Justina Menendez MENS LOCKER ROOM ATTENDANT Primary Care Provider [phone] Encounter Details Date Type Department Care Team (Late st Contact Info) Description 03/30/2012 Orders [place] [address] Bhakti Warner MD [facility] [place] [address] Grave's disease (Primary Dx) Social History Tobacco Use Types Packs/Day Years [...] on file documented as of this encounter Results * Beta HCG, quantitative (04/27/2012 10:59 AM EDT) Beta hCG Quant <1 mlU/ML TRACEY Haque [facility] Comment: REFERENCE RANGES NON- FEMALE: ??Less than 5 mIU/mL POSTMENOPAUSAL FEMALE: ??Less than 8 mIU/mL ? -- FEMALES -- Weeks of ? HCG range ??(mIU/mL) ? 3 weeks ? 5.8 - 71.2 ? 4 weeks ? 9.5 - 750 ? 5 weeks ? 217 - 7,138 ? 6 weeks ? 158 - 31,795 ? 7 weeks ? 3,697 - 163,563 ? 8 weeks ? 32,065 - 149,571 ? 9 weeks ? 63,803 - 151,410 ?10 weeks ? 46,509 - 186,977 ?12 weeks ? 27,832 - 210,612 ?14 weeks ? 13,950 - 62,530 ?15 weeks ? 12,039 - 70,971 ?16 weeks ? 9,040 - 56,451 ?17 weeks ? 8,175 - 55,868 ?18 weeks ? 8,099 - 58,176 Blood specimen (specimen) 04/27/2012 10:59 AM EDT 04/27/2012 11:04 AM EDT Narrative Resulting Agency Comment Spec In Lab Pascual Godwin MD CHEMISTRY ORDERABLES Performing Organization Address City/State/[facility] Co de Phone Number [facility] documented in this encounter Visit Diagnoses Diagnosis Grave's disease- Primary Toxic diffuse goiter without mention of thyrotoxic crisis or storm documented in this encounter Care Teams Construction Technology Instructor Relationship Specialty Start Date End Date Justina Menendez APRN [address] [place] [address] PCP - General 12/30/11 01/13/19 documented as of this encounter
--- OUTSIDE RECORDS SUMMARY | 2024-06-06 17:46 | XMS_ITS | Encounter Summary ---
Author Organization [facility] Address [facility] [place] [address] Care Team Providers Care Public Health Inspector Name Role Phone Justina Menendez APRN Primary Care Provider [phone] Reason for Visit * Reason Onset Date Comments Other 07/24/2012 Encounter Details Date Type Department Care Team (Late st Contact Info) Description 07/24/2012 Telephone [place] [address] Jasmin Monreal MD [facility] [place] [address] Other Social History Tobacco Use Types Packs/Day Years [...] encounter Miscellaneous Notes * Telephone Encounter - Jasmin Monreal MD - 07/25/2012 9:16 AM EDT The Synthroid should not cause a migraine but fluctuations in thyroid hormone might make her more prone to develop a migraine- treatment is just usual migraine treatment, and continue thyroid hormonereplacement. * Telephone Encounter - Ade Flores RN - 07/24/2012 4:54 PM EDT Darcie called today saying that she feels she has a migraine and it hurts behind her eyes. She waswondering if it could be due to the start of the Synthroid. I tried calling her back and she was not in, but I left a message. I suggested that she call back again tomorrow. documented in this encounter Plan of Treatment Not on file documented as of this encounter Visit Diagnoses Not on filedocumented in this encounter Care Teams Public Health Inspector Relationship Specialty Start Date End Date Justina Menendez APRN [address] [place] [address] PCP - General 12/30/11 01/13/19 documented as of this encounter
--- OUTSIDE RECORDS SUMMARY | 2024-06-06 17:46 | XMS_ITS | Encounter Summary ---
Author Organization [facility] Address [facility] [place] [address] Care Team Providers Care Sieve Maker Name Role Phone Justina Menendez RUPESH Primary Care Provider [phone] Encounter Details Date Type Department Care Team (Latest Contact Info) Description 04/27/2012 12:47 PM EDT - 04/27/2012 11:59 PM EDT Hospital Encounter [place] [address] CLINIC, Pascual Green MD [facility] [place] [address] Grave's disease Discharge Disposition: Home Social History Tobacco Use Types Packs/Day Years Used Date Smoking Tobacco: Never Smokeless Tobacco: Never Alcohol Use Standard Drinks/Week Comments No 0 (1 standard drink = 0.6 oz pur e alcohol) Sex and Gender Information Value Date Recorded Sex Assigned at Not on file Gender Identity Not on file Sexual Orientation Not on file documented as of this encounter Medications at Time of Discharge Medication Sig Dispensed Refills Start Date End Date ibuprofen (ADVIL) 200 mg tablet 12/15/2010 atenolol (TENORMIN) 50 mg tablet Take 1 tablet by mouth daily. 30 tablet 1 03/30/2012 05/31/2012 methimazole (TAPAZOLE) 5 mg tabletIndications:Grave s' disease Take 0.5 tablets by mouth daily. 30 tablet 11 02/10/2012 05/31/2012 topiramate (TOPAMAX) 25 mg tablet Take 25 mg by mouth daily. 05/31/2012 RIZATRIPTAN BENZOATE (MAXALT ORAL) 12/15/2010 01/23/2019 CYPROHEPTADINE HCL (CYPROHEPTADINE ORAL) 12/15/20102011 NORETHINDRONE ACETATE ORAL 12/15/2010 05/31/2012 documented as of this encounter Plan of Treatment Not on file documented as of this encounter Procedures Procedure Name Priority Date/Time Associated Diagnosis Comments NM I 131 INITIAL THERAPY Routine 04/27/2012 1:23 PM EDT Grave's disease documented in this encounter Results * NM I-131cap ther per mCi (04/27/2012 1:23 PM EDT) Anatomical Region Laterality Modality Other 04/27/2012 1:23 PM EDT Narrative 04/27/2012 1:59 PM EDT Examination I-131 THERAPY Clinical History Graves' disease Comparison None Technique The treatment of hyperthyroidism using radioactive iodine, as well as alternative forms of therapy were discussed with the patient. The patient was told about possible side effect and necessary precautions. Possible outcomes, including the potential of permanent hypothyroidism were mentioned. Informed consent was signed. A test was negative. Findings The patient received 9.8mCi of I-131 administered orally and left the department in good condition. Impression Therapy for hyperthyroidism administered. Procedure Note Rene Rosas MD - 04/27/2012 Examination I-131 THERAPY Clinical History Graves' disease Comparison None Technique The treatment of hyperthyroidism using radioactive iodine, as well as alternative forms of therapy were discussed with the patient. The patientwas told about possible side effect and necessary precautions. Possibleoutcomes, including the potential of permanent hypothyroidism were mentioned. Informed consent was signed. A test was negative. Findings The patient received 9.8mCi of I-131 administered orally and left the department in good condition. Impression Therapy for hyperthyroidism administered. Pascual FIGUEROA NM ORDERABLES documented in this encounter Visit Diagnoses Diagnosis Grave's disease Toxic diffuse goiter without mention of thyrotoxic crisis or storm documented in this encounter Care Teams Sieve Maker Relationship Specialty Start Date End Date Justina Menendez APRN [address] [place] [address] PCP - General 12/30/11 01/13/19 documented as of this encounter
--- OUTSIDE RECORDS SUMMARY | 2024-06-06 17:46 | XMS_ITS | Encounter Summary ---
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 pantoprazole (PROTONIX) 20 mg Tablet, Delayed Release (E.C.) Take 20 mg by mouth daily. buPROPion (WELLBUTRIN XL) 150 mg 24 hr tablet Take 300 mg by mouth every morning. 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 Current growth parameters are consistent with prior dating indicating normal growth. Amniotic fluid volume is Normal Detailed anatomic evaluation was performed. There is mild urinary tract dilation (pelvis 7.7 mm) with normal renal cortex. ??No other structural abnormalities are noted. Anatomical survey is limited due to the late gestational age. ? Amy Fonseca, Staff Physician Electronically Signed Final Report ?? 01/23/2019 09:46 am Narrative 01/23/2019 9:46 AM EDT OBSTETRICS REPORT ? (Signed Final 01/23/2019 09:46 am) PATIENT INFO: ID #: ? [id number] ?: ??[birth year] (28 yrs) Name: ? PEDRO SOLO ?Visit Date: 01/23/2019 08:19 am PERFORMED BY: Performed By: ? Dot Kay RDMS Attending: ?Raymundo GRANDA, Amy R. Resident: ? Yolanda Avina MD Referred By: ?DONG DICKERSON Location: ? [facility] SERVICE(S) PROVIDED: ??[facility] - Detailed Morphology - [id number] ? [id number] INDICATIONS: ??30 weeks gestation of ?Z3A.30 ??Thyrotoxicosis w/ toxic multinodular goiter ??w/o thyrotoxic crisis or storm VITAL SIGNS: Weight (lb): 125.0 Height: ?5'4 ?BMI: ?21.45 EVALUATION: Num Of Fetuses: ?1 Heart Rate(bpm): ?? 141 Cardiac Activity: ?Observed, normal rhythm Presentation: ?Cephalic Placenta: ?Posterior P. Cord Insertion: ? Not well seen Amniotic Fluid TESS FV: ?Normal TESS Sum(cm) ? Largest Pocket(cm) 14.03 ? 3.99 RUQ(cm) ? RLQ(cm) ? LUQ(cm) ?LLQ(cm) 3.2 ? 3.6 ? 4.0 ?3.2 --------- BIOMETRY: --------- BPD: ?78.3 ??mm ? G.Age: ?? 31w 3d ?56 ??% OFD: ? 100.4 ??mm HC: ?283.3 ??mm ? G.Age: ?? 31w 0d ?21 ??% AC: ?252.1 ??mm ? G.Age: ?? 29w 3d ?11 ??% FL: ? 58.4 ??mm ? G.Age: ?? 30w 4d ?26 ??% HUM: ?51.7 ??mm ? G.Age: ?? 30w 1d ?39 ??% CER: ?35.8 ??mm ? G.Age: ?? 30w 6d ?49 ??% NB: ? 13.8 ??mm LV: ?6.0 ??mm CM: ?8.5 ??mm CI: ?78.0 ??% ? 70 - 86 FL/HC: ? 20.6 ??% ? 19.3 - 21.3 HC/AC: ? 1.12 ?0.96 - 1.17 FL/BPD: ?74.6 ??% ? 71 - 87 FL/AC: ? 23.2 ??% ? Est. FW: ?1507 ?? gm ? 3 lb 5 oz ?54 ??% OB HISTORY: Blood Type: ?O- : ?3 ? Term: ?? 2 Living: ? 2 GESTATIONAL AGE: U/S Today: ? 30w 4d ?MEMO: ?? 03/30/19 Best: ?30w 6d ?? Det. By: ??Early ?MEMO: ?? 03/28/19 ? Ultrasound ? (08/13/18) TARGETED ANATOMY: Central Nervous System Calvarium/Cranial V.: ??Within Normal Limits Intracranial Cinda: ? Within Normal Limits Cavum: ? Within Normal Limits Parenchyma: ?Within Normal Limits Lateral Ventricles: ?Within Normal Limits Choroid Plexus: ?Within Normal Limits Cereb./Vermis: ? Within Normal Limits Cisterna Magna: ?Within Normal Limits Midline Falx: ?Within Normal Limits Spine Cervical: ?Visualized Thoracic: ?Visualized Lumbar: ?Visualized Sacral: ?Visualized Shape/Curvature: ? Visualized Head/Neck Face: ?Within Normal Limits Lips: ?Within Normal Limits Neck: ?Within Normal Limits Nuchal Fold: ? Within Normal Limits Nasal Bone: ?Present Profile: ? Visualized Orbits/Eyes: ? Visualized Mandible: ?Visualized Maxilla: ? Visualized Thorax Thoracic Contour: ?Within Normal Limits Lungs: ? Visualized 4 Chamber View: ?Within Normal Limits Cardiac Motion: ?Normal Rhythm Rt Outflow Tract: ?Visualized Lt Outflow Tract: ?Visualized Aortic Arch: ? Visualized Ductal Arch: ? Visualized SVC: ? Visualized Cardiac [place]: ?Visualized Diaphragm: ? Visualized 3 Vessel View: ? Visualized IVC: ? Visualized Abdomen Ventral Wall: ?Visualized Cord Insertion: ?Visualized Situs: ? Normal Stomach: ? Visualized Liver: ? Visualized Lt Kidney: ? Visualized Rt Kidney: ? UTD= ??7.7 mm Bladder: ? Visualized Bowel: ? Visualized Extremities Lt Humerus: ?Within Nomal Limits Rt Humerus: ?Within Normal Limits Lt Forearm: ?Within Normal Limits Rt Forearm: ?Within Normal Limits Lt Hand: ? Limited Views Rt Hand: ? Limited Views Lt Femur: ?Within Normal Limits Rt Femur: ?Within Normal Limits Lt Lower Leg: ?Within Normal Limits Rt Lower Leg: ?Within Normal Limits Lt Foot: ? Limited Views Rt Foot: ? Limited Views Other Umbilical Cord: ?3 vessel cord Genitalia: ? Male CERVIX UTERUS ADNEXA: Left Ovary Not visualized Right Ovary Not visualized Procedure Note Amy Fonseca MD - 01/23/2019 OBSTETRICS REPORT (Signed Final 01/23/2019 09:46 am) PATIENT INFO: ID #: [id number] : [birth year] (28 yrs) Name: EPDRO SOLO Visit Date: 01/23/2019 08:19 am PERFORMED BY: Performed By: Dot Kay RDMS Attending: Amy Fonseca MD Resident: Yolanda Avina MD Referred By: DONG DICKERSON Location: [facility] SERVICE(S) PROVIDED: [facility] - Detailed Morphology - [id number] INDICATIONS: 30 weeks gestation of Z3A.30 Thyrotoxicosis w/ toxic multinodular goiter w/o thyrotoxic crisis or storm VITAL SIGNS: Weight (lb): 125.0 Height: 5'4 BMI: 21.45 EVALUATION: Num Of Fetuses: 1 Heart Rate(bpm): 141 Cardiac Activity: Observed, normal rhythm Presentation: Cephalic Placenta: Posterior P. Cord Insertion: Not well seen Amniotic Fluid TESS FV: Normal TESS Sum(cm) Largest Pocket(cm) 14.03 3.99 RUQ(cm) RLQ(cm) LUQ(cm) LLQ(cm) 3.2 3.6 4.0 3.2 --------- BIOMETRY: --------- BPD: 78.3 mm G.Age: 31w 3d 56 % OFD: 100.4 mm HC: 283.3 mm G.Age: 31w 0d 21 % AC: 252.1 mm G.Age: 29w 3d 11 % FL: 58.4 mm G.Age: 30w 4d 26 % HUM: 51.7 mm G.Age: 30w 1d 39 % CER: 35.8 mm G.Age: 30w 6d 49 % NB: 13.8 mm LV: 6.0 mm CM: 8.5 mm CI: 78.0 % 70 - 86 FL/HC: 20.6 % 19.3 - 21.3 HC/AC: 1.12 0.96 - 1.17 FL/BPD: 74.6 % 71 - 87 FL/AC: 23.2 % 20 - 24 Est. FW: 1507 gm 3 lb 5 oz 54 % OB HISTORY: Blood Type: O- : 3 Term: 2 Livin GESTATIONAL AGE: U/S Today: 30w 4d MEMO: 03/30/19 Best: 30w 6d Det. By: Early MEMO: 03/28/19 Ultrasound (08/13/18) TARGETED ANATOMY: Central Nervous System Calvarium/Cranial V.: Within Normal Limits Intracranial Cinda: Within Normal Limits Cavum: Within Normal Limits Parenchyma: Within Normal Limits Lateral Ventricles: Within Normal Limits Choroid Plexus: Within Normal Limits Cereb./Vermis: Within Normal Limits Cisterna Magna: Within Normal Limits Midline Falx: Within Normal Limits Spine Cervical: Visualized Thoracic: Visualized Lumbar: Visualized Sacral: Visualized Shape/Curvature: Visualized Head/Neck Face: Within Normal Limits Lips: Within Normal Limits Neck: Within Normal Limits Nuchal Fold: Within Normal Limits Nasal Bone: Present Profile: Visualized Orbits/Eyes: Visualized Mandible: Visualized Maxilla: Visualized Thorax Thoracic Contour: Within Normal Limits Lungs: Visualized 4 Chamber View: Within Normal Limits Cardiac Motion: Normal Rhythm Rt Outflow Tract: Visualized Lt Outflow Tract: Visualized Aortic Arch: Visualized Ductal Arch: Visualized SVC: Visualized Cardiac [place]: Visualized Diaphragm: Visualized 3 Vessel View: Visualized IVC: Visualized Abdomen Ventral Wall: Visualized Cord Insertion: Visualized Situs: Normal Stomach: Visualized Liver: Visualized Lt Kidney: Visualized Rt Kidney: UTD= 7.7 mm Bladder: Visualized Bowel: Visualized Extremities Lt Humerus: Within Nomal Limits Rt Humerus: Within Normal Limits Lt Forearm: Within Normal Limits Rt Forearm: Within Normal Limits Lt Hand: Limited Views Rt Hand: Limited Views Lt Femur: Within Normal Limits Rt Femur: Within Normal Limits Lt Lower Leg: Within Normal Limits Rt Lower Leg: Within Normal Limits Lt Foot: Limited Views Rt Foot: Limited Views Other Umbilical Cord: 3 vessel cord Genitalia: Male CERVIX UTERUS ADNEXA: Left Ovary Not visualized Right Ovary Not visualized IMPRESSION 3rd Trimester - Detailed Morphology - Summary Single intrauterine with a gestational age of 30w 6d based on Early Ultrasound (08/13/18) Composite age based on the current ultrasound alone is 30w 4d. Current growth parameters are consistent with prior dating indicating normal growth. Amniotic fluid volume is Normal Detailed anatomic evaluation was performed. There is mild urinary tract dilation (pelvis 7.7 mm) with normal renal cortex. No other structural abnormalities are noted. Anatomical survey is limited due to the late gestational age. 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
--- OUTSIDE RECORDS SUMMARY | 2024-06-06 17:46 | XMS_ITS | Encounter Summary ---
Author Organization [facility] Address [facility] [place] [address] Care Team Providers Care Frame Maker Name Role Phone Justina Menendez RUPESH Primary Care Provider [phone] Encounter Details Date Type Department Care Team (Latest Contact Info) Description 04/27/2012 10:54 AM EDT - 04/27/2012 11:59 PM EDT Hospital [place] [address] Pascual Godwin MD [facility] [place] [address] Grave's disease Discharge Disposition: Home Social History [...] Procedure Name Priority Date/Time Associated Diagnosis Comments BETA HCG, QUANTITATIVE STAT 04/27/2012 10:59 AM EDT Grave's disease documented in this encounter Results * Beta HCG, quantitative (04/27/2012 10:59 AM EDT) Beta hCG Quant <1 mlU/ML TRACEY VAZQUEZ Comment: REFERENCE RANGES NON- FEMALE: ??Less than [...] - 56,451 ?17 weeks ? 8,175 - 77,868 ?18 weeks ? 8,099 - 39,176 Blood specimen (specimen) 04/27/2012 10:59 AM EDT 04/27/2012 11:04 AM EDT Narrative Resulting Agency Comment Spec In Lab Pascual Godwin MD CHEMISTRY ORDERABLES [facility] documented in this encounter Visit Diagnoses Diagnosis Grave's disease Toxic diffuse goiter without mention of thyrotoxic crisis or storm documented in this encounter Care Teams Frame Maker Relationship Specialty Start Date End Date Justina Menendez, STAFFING MGR [address] [place] [address] PCP - General 12/30/11 01/13/19 documented as of this encounter
--- OUTSIDE RECORDS SUMMARY | 2024-06-06 17:46 | XMS_ITS | Encounter Summary ---
Author Organization [facility] Address [facility] [place] [address] Care Team Providers Care Development Advisor Name Role Phone Justina Menendez APRN Primary Care Provider [phone] Reason for Visit * Reason Onset Date Comments Other 07/25/2012 Encounter Details Date Type Department Care Team (Late st Contact Info) Description 07/25/2012 Telephone [place] [address] Nicky Baumann [facility] [place] [address] Other Social History Tobacco Use Types Packs/Day [...] Telephone Encounter - Nicky Baumann RN - 07/25/2012 10:[address] Monreal's message left for the patient on her answering machine. documented in this encounter Plan of Treatment Not on file documented as of this encounter Visit Diagnoses Not on filedocumented in this encounter Care Teams Development Advisor Relationship Specialty Start Date End Date Justina Menendez APRN [address] [place] [address] PCP - General 12/30/11 01/13/19 documented as of this encounter
--- OUTSIDE RECORDS SUMMARY | 2024-06-06 17:46 | XMS_ITS | Encounter Summary ---
Author Organization [facility] Address [facility] [place] [address] Care Team Providers Care Outside Sales Consultant Name Role Phone Justina Menendez RUPESH Primary Care Provider [phone] Encounter Details Date Type Department Care Team (Late st Contact Info) Description 07/05/2012 Telephone [place] [address] Jasmin Monreal MD [facility] [place] [address] Social History Tobacco Use Types Packs/Day Years [...] Telephone Encounter - Jasmin Monreal MD - 07/05/2012 4:35 PM EDT Called with thyroid results: TSH 53.24, free T4 0.62. Darcie is having a lot of muscle cramps and fatigue. Will start levothyroxine 0.1 mg/day. She will recheck labs at home before next visit. documented in this encounter Plan of Treatment Not on file documented as of this encounter Visit Diagnoses Diagnosis Hypothyroid- Primary Unspecified hypothyroidism documented in this encounter Care Teams Outside Sales Consultant Relationship Specialty Start Date End Date Justina Menendez APRN [address] [place] [address] PCP - General 12/30/11 01/13/19 documented as of this encounter
--- OUTSIDE RECORDS SUMMARY | 2024-06-06 17:46 | XMS_ITS | Encounter Summary ---
Author Organization [facility] Address [facility] [place] [address] Care Team Providers Care Circus Laborer Name Role Phone Justina Menendez APRN Primary Care Provider [phone] Reason for Visit * Reason Onset Date Comments Thyroid Problem 03/16/2012 Encounter Details Date Type Department Care Team (Late st Contact Info) Description 03/16/2012 Tele[place] [address] Bhakti Warner MD [facility] DR ENDOCRIN[place] [address] Thyroid Problem Social History Tobacco Use Types Packs/Day Years [...] encounter Miscellaneous Notes * Telephone Encounter - Bhakti Warner - 03/16/2012 9:25 AM EDT Patient's mother called to say that insurance deductible is high if has test done outside of . .Will set up uptake at [facility] followed by treatment Ablation dose down here. documented in this encounter Plan of Treatment Not on file documented as of this encounter Visit Diagnoses Diagnosis Grave's disease- Primary Toxic diffuse goiter without mention of thyrotoxic crisis or storm documented in this encounter Care Teams Circus Laborer Relationship Specialty Start Date End Date Justina Menendez APRN [address] [place] [address] PCP - General 12/30/11 01/13/19 documented as of this encounter
--- OUTSIDE RECORDS SUMMARY | 2024-06-06 17:46 | XMS_ITS | Encounter Summary ---
Author Organization [facility] Address [facility] [place] [address] Care Team Providers Care Electrodynamicist Name Role Phone Justina Menendez APRN Primary Care Provider [phone] Reason for Visit * Reason Comments Medication Refill Encounter Details Date Type Department Care Team (Late st Contact Info) Description 08/21/2013 [place] [address] Jasmin Monreal MD [facility] DR ENDOCRINOLOG[place] [address] Social History Tobacco Use Types Packs/Day Years [...] on filedocumented in this encounter Care Teams Electrodynamicist Relationship Specialty Start Date End Date Justina Menendez APRN [address] [place] [address] PCP - General 12/30/11 01/13/19 documented as of this encounter
--- OUTSIDE RECORDS SUMMARY | 2024-06-06 17:46 | XMS_ITS | Encounter Summary ---
Author Organization [facility] Address [facility] [place] [address] Care Team Providers Care Glove Pairer Name Role Phone Justina Menendez APRN Primary Care Provider [phone] Reason for Visit * Reason Onset Date Comments Results 03/29/2012 Encounter Details Date Type Department Care Team (Late st Contact Info) Description 03/29/2012 Telephone [place] [address] Bhakti Warner MD [facility] [place] [address] Results Social History Tobacco Use Types Packs/Day Years [...] * Telephone Encounter - Bhakti Warner - 03/29/2012 2:39 PM EDT Labs from 03/26/12 received (done at [facility]) Free T3 5.3 FreeT4 1.57 Increased Methimazole to 20 mg daily. Repeat labs in 2 weeks. documented in this encounter Plan of Treatment Not on file documented as of this encounter Visit Diagnoses Not on filedocumented in this encounter Care Teams Glove Pairer Relationship Specialty Start Date End Date Justina Menendez APRN [address] [place] [address] PCP - General 12/30/11 01/13/19 documented as of this encounter
--- OUTSIDE RECORDS SUMMARY | 2024-06-06 17:46 | XMS_ITS | Encounter Summary ---
Author Organization [facility] Address [facility] [place] [address] Care Team Providers Care Chocolate Molder Name Role Phone Justina Menendez APRN Primary Care Provider [phone] Reason for Visit * Reason Comments Follow-up Encounter Details Date Type Department Care Team (Late st Contact Info) Description 05/31/2012 1:00 PM EDT Office [place] [address] Jasmin Monreal MD [facility] [place] [address] Hyperthyroidism (Primary Dx) Discharge Disposition: Home Social [...] Sign Reading Time Taken Comments Blood Pressure 122/68 05/31/2012 12:51 PM EDT Pulse 61 05/31/2012 12:51 PM EDT Temperature - - Respiratory Rate - - Oxygen Saturation - - Inhaled Oxygen Concentration - - Weight 68.5 kg (151 lb) 05/31/2012 12:51 PM EDT Height 162.6 cm (5' 4) 05/31/2012 12:51 PM EDT Body Mass Index 25.92 05/31/2012 12:51 PM EDT documented in this encounter Progress Notes * Jasmin Monreal MD - 05/31/2012 1:29 PM EDT PRIMARY CARE PROVIDER: Justina Menendez APRN. HISTORY OF PRESENT ILLNESS: Darcie is a 22-year-old woman who had been seeing Dr. Bhakti Warner, endocrine fellow. Dr. Warner has completed her fellowship and I will be assuming care. Ms. Gonzalez was diagnosed with Graves' disease in early [...] lowered to 25 mg after the ablation and she has continued on that. She has noticed recently that she has had fatigue. No hyperthyroid symptoms -Tremor, palpitations, and so forth have resolved. She has also noticed a little bit of worsening anxiety and perhaps depression. Denies nervousness, irritability, tremors, palpations, heat intolerance, and change in her weight, hair, skin, mood, or bowels. PAST MEDICAL HISTORY: Graves' disease and migraine headaches. Current outpatient prescriptions ordered prior to encounter Medication Sig Dispense Refill ??? RIZATRIPTAN BENZOATE (MAXALT ORAL) ??? ibuprofen (ADVIL) 200 mg tablet No Known Allergies SOCIAL HISTORY: She just completed her mary year at [employer] as a business major and she is working as a accredited pharmacy technician over the summer. She is a nonsmoker and nondrinker. FAMILY HISTORY: Unchanged in the medical record. REVIEW OF SYSTEMS: Negative. PHYSICAL EXAMINATION: Blood pressure 128/68, pulse 61, weight 151 pounds, height 5 feet 4 inches. In general, she is a well-developed young woman, in no acute distress. HEENT: Extraocular movements intact. No lid lag or stare. No periorbital edema. Her neck is supple. Her thyroid gland is about 20 g, mobile, and nontender. No nodules. Skin: Smooth, warm, and dry. Her neurologic exam, extraocular movements intact. No lid lag or stare. Motor strength and tone are normal. There is a very mild tremor. Deep tendon reflexes are 2+ and symmetrical. Laboratory tests from May 22, T3 184, TSH 0.03, and free T4 1.01. IMPRESSION: 1. Hyperthyroidism related to Graves' disease. The patient's thyroid function tests have improved since March when free T4 was 1.4 and symptomatically she is improved. She is still perhaps mildly hyperthyroid. She understands that it can take two to six months to see the full effects of radioactive iodine, and at this point, we will continue to follow things. I think we can have her discontinue her atenolol, and we will recheck thyroid tests in a month and see her in followup in about two months, and I will have her discontinue her atenolol. 2. Anxiety/depression. Darcie wondered whether she should start on medication. I told her I think it really depends on her symptoms. Some of them could certainly be related to changes in the thyroid function. If she is very symptomatic, she might want to use the medication to help take edge off things. Once she is euthyroid, she could taper the medications and see if she needs some. It is difficult at this point to determine what is related to her fluctuating thyroid levels and what might be of primary underlying mood disturbance. PLAN: 1. Discontinue atenolol. 2. Check thyroid tests in one month. 3. Followup in two months with thyroid tests in the quick draw lab. documented in this encounter Plan of Treatment Not on file documented as of this encounter Visit Diagnoses Diagnosis Hyperthyroidism- Primary Thyrotoxicosis without mention of goiter or other cause, without mention of thyrotoxic crisis or storm documented in this encounter Care Teams Chocolate Molder Relationship Specialty Start Date End Date Justina Menendez APRN [address] [place] [address] PCP - General 12/30/11 01/13/19 documented as of this encounter
--- OUTSIDE RECORDS SUMMARY | 2024-06-06 17:46 | XMS_ITS | Clinical Summary ---
Author Organization [facility] Address [facility] [place] [address] Care Team Providers Care Stock Broker Name Role Phone Jacquelyn Carpenter APRN Primary Care Provider Allergies No known active allergies Medications Medication Sig Dispensed Refills Start Date End Date Status ibuprofen (ADVIL) 200 mg tablet 12/15/2010 Active buPROPion (WELLBUTRIN XL) 150 mg 24 hr tablet Take 300 mg by mouth every morning. Active levothyroxine (SYNTHROID) 200 mcg Tablet Take 200 mcg by mouth daily. Active pantoprazole (PROTONIX) 20 mg Tablet, Delayed Release (E.C.) Take 20 mg by mouth daily. Active Active Problems Problem Noted Date Diagnosed Date Grave's disease 02/23/2011 Migraine 02/23/2011 Family History Medical History Relation Comments Thyroid Disease Maternal Aunt Thyroid Disease Other Relation Status Comments Maternal Aunt Other Alive Social History Tobacco Use Types Packs/Day Years Used Date Smoking Tobacco: Never Smokeless Tobacco: Never Alcohol Use Standard Drinks/Week Comments No 0 (1 standard drink = 0.6 oz pur e alcohol) Sex and Gender Information Value Date Recorded Sex Assigned at Not on file Gender Identity Not on file Sexual Orientation Not on file Last Filed Vital Signs Vital Sign Reading Time Taken Comments Blood Pressure 114/71 01/23/2019 9:31 AM EDT Pulse 81 08/13/2012 9:25 AM EDT Temperature - - Respiratory Rate - - Oxygen Saturation - - Inhaled Oxygen Concentration - - Weight 73.7 kg (162 lb 8 oz) 01/23/2019 9:31 AM EDT Height 162.6 cm (5' 4) 08/13/2012 9:25 AM EDT Body Mass Index 27.89 08/13/2012 9:25 AM EDT Plan of Treatment Health Maintenance Due Date Last Done Comments HIV screen 2009 Hepatitis C Screening 2009 Hepatitis B vaccine (0-59 yrs) (1) 2010 Tdap adult 2010 Tetanus vaccine 2010 HPV test 2021 PAP Smear 2021 Covid-19 Vaccine ( - 2022- season) 2023 Influenza (Flu) vaccine (1 o f 1 - Influenza standard series) 07/07/2024 Care Teams Stock Broker Relationship Specialty Start Date End Date Jacquelyn Carpenter APRN [address] [place], [place] [address] PCP - General Family Medicine 01/14/19
--- OUTSIDE RECORDS SUMMARY | 2024-06-06 17:46 | XMS_ITS | Encounter Summary ---
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 Jasmin Dickerson CNM [address] [place] [address] [facility] [employer] Rob[employer] [address] [place] [address] Referral ID Status Reason Start Date Expiration Date Visits Re quested Visits Authorized [id number] Closed 01/14/2019 01/14/2020 1 1 Encounter Details Date Type Department Care Team (Latest Contact Info) Description 01/23/2019 9:00 AM EDT Procedure visit Obstetrics [place] [address] Amy Fonseca MD [facility] OBSTETRICS [place] [address] Graves disease; Hyperthyroidism affecting in third trimester Social History Tobacco Use Types Packs/Day Years [...] Pressure 114/71 01/23/2019 9:31 AM EDT Pulse - - Temperature - - Respiratory Rate - - Oxygen Saturation - - Inhaled Oxygen Concentration - - Weight 73.7 kg (162 lb 8 oz) 01/23/2019 9:31 AM EDT Height - - Body Mass Index 27.89 08/13/2012 9:25 AM EDT documented in this encounter Progress Notes * Amy Fonseca MD - 01/23/2019 9:00 AM EDT Maternal Medicine Consult Note Darcie Gonzalez is a 28 y.o. with an MEMO of 03/28/19 who is at 30w6d gestation by early ultrasound. She is seen in consultation at the request of Jasmin Dickerson CNM for evaluation of a history of hyperthyroidism. She was seen today for maternal- medicine consultation and ultrasound evaluation. The patient reports that this has been uncomplicated to date. She had cell free DNA testing this low risk for trisomy 21, 18 and 13. She developed Grave's diseasein 2010. Did not have a goiter or opthalmopathy. Had radioactive iodine thyroid ablation in 2012. Has been euthroid since that time. Is currently taking levothyroxine 200 mcg. Has had normal TSH levels this . Record Review No additional issues Past Medical History: Diagnosis Date ??? Grave's disease 02/23/2011 ??? Migraine 02/23/2011 History reviewed. No pertinent surgical history. OB History Para Term AB Living 3 2 2 0 0 2 SAB TAB Ectopic Multiple Live Births 0 0 0 0 2 # Outcome Date GA Lbr Stevie/2nd Weight Sex Delivery Anes PTL Lv 3 Current 2 Term 2015 41w0d 3.09 kg (6 lb 13 oz) Vag-Spont N CARMELA 1 Term 2013 40w0d 0.369 kg (13 oz) Vag-Spont N CARMELA A family history was obtained. There is history of structural abnormalities, inheritable disease, learning disability,intellectual disability, epilepsy, or repetitive loss. The ethnic backgrounds do not suggest a significantly increased genetic risk. 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 levothyroxine (SYNTHROID) 200 mcg Tablet Take 200 mcg by mouth daily. ??? pantoprazole (PROTONIX) 20 mg Tablet, Delayed Release (E.C.) Take 20 mg by mouth daily. ??? buPROPion (WELLBUTRIN XL) 150 mg 24 hr tablet Take 300 mg by mouth every morning. ??? ibuprofen (ADVIL) 200 mg tablet (Patient not taking: No sig reported) No current facility-administered medications for this visit. No Known Allergies Review of Systems Constitutional: generally well Eyes: negative Ears Nose Throat:negative Respiratory: no cough, shortness of breath, or wheezing Cardiac: negative Gastrointestinal: Normal bowel movements, denies hematochezia, melena or pain. Genitourinary: Negative for dysuria Musculoskeletal: negative Skin: negative Psychiatric: Negative for anxiety, depression Endocrine:negative Contractions: none Leaking: none Bleeding: none Ultrasound Single intrauterine with a gestational age of [...] limited due to the late gestational age. Physical Exam Most Recent Vitals: 01/23/19 0931 BP: 114/71 General: alert, well appearing, in no apparent distress HEENT: normocephalic, atraumatic Extremities: normal Neurologic:alert, oriented, normal speech Abdomen: abdomen is soft without significant tenderness Psychiatric: affect is appropriate. Uterine Size: consistent with dates Assessment and Recommendations: 28 y.o. at 30 6/7 weeks gestation. Graves disease. Graves Disease: ?? The patient was counseled that the antibodies that cause hyperthyroidism do cross the placenta and may affect her fetus. TSH should be checked every 2-3 months to monitor thyroid function. I recommended that thyroid stimulating immunoglobulin be checked. I gave her a lab slip for today as she wished it to be done locally. If this is more that five times above normal, there is a risk for thyrotoxicosis and the fetus should be followed very closely for tachycardia and IUGR. Her risk is presumably small as she has had 2 pregnancies without growth restriction. I recommend that she have agrowt scan locally at 34 weeks. Mild unilateral urinary tract dilation with normal renal cortex. I recommend that the visual merchandising manager be made aware and that a renal ultrasound be obtained. I appreciate the opportunity to be involved in this patient's care and am available if further questions should arise. Amy Fonseca MD 01/23/2019 Cc: Jasmin Dickerson CNM documented in this encounter Plan of Treatment Not on file documented as of this encounter Visit Diagnoses Diagnosis Graves disease Toxic diffuse goiter without mention of thyrotoxic crisis or storm Hyperthyroidism affecting in third trimester documented in this encounter Care Teams Road Boss Relationship Specialty Start Date End Date Marcioandres RUPESH Valladares [address] [place] [address] PCP - General Family Medicine 01/14/19 documented as of this encounter
--- OUTSIDE RECORDS SUMMARY | 2024-06-06 17:46 | XMS_ITS | Encounter Summary ---
Author Organization [facility] [place] [address] Care Team Providers Care Digital Print Operator Name Role Phone Justina Mennedez UROLOGIST PHYSICIAN Primary Care Provider [phone] Reason for Visit * Reason Onset Date Comments Results 03/13/2012 Encounter Details Date Type Department Care Team (Late st Contact Info) Description 03/13/2012 Telephone [place] [address] Socorro Martinez LPN Results Social History Tobacco Use Types Packs/Day [...] encounter Miscellaneous Notes * Telephone Encounter - Socorro Martinez LPN - 03/15/2012 8:49 AM EDT Called for FT4 results to be faxed. Received and forward to Dr Warner * Telephone Encounter - Socorro Martinez LPN - 03/13/2012 1:41 PM EDT Received call back from Trav in lab at [facility] can do either TT3 or FT4 not both. Per v/o Dr Warner she was told to do FT4. * Telephone Encounter - Socorro Martinez LPN - 03/13/2012 1:25 PM EDT Called lab spoke with Trav was told that TT3 and FT4 can be added on. Lab slip faxed confirmation received. * Telephone Encounter - Socorro Martinez LPN - 03/13/2012 12:[address] Warner called lab at [facility] to ask if TT3 and FT4 can be added on to labs(TSH) done 03/12/12. Received voice mail only. left message to please return my call. documented in this encounter Plan of Treatment Not on file documented as of this encounter Visit Diagnoses Not on filedocumented in this encounter Care Teams Digital Print Operator Relationship Specialty Start Date End Date Justina Menendez APRN [address] [place] [address] PCP - General 12/30/11 01/13/19 documented as of this encounter
--- OUTSIDE RECORDS SUMMARY | 2024-06-06 17:46 | XMS_ITS | Encounter Summary ---
Author Organization [facility] Address [facility] [place] [address] Care Team Providers Care Molder Helper Name Role Phone Justina Menendez APRN Primary Care Provider [phone] Reason for Visit * Reason Onset Date Comments Labs Only 02/10/2012 Encounter Details Date Type Department Care Team (Late st Contact Info) Description 02/10/2012 Tele[place] [address] Nicky Baumann [facility] [place] [address] Labs Only Social History Tobacco Use Types [...] * Telephone Encounter - Bhakti Warner - 02/10/2012 8:52 AM EDT Received labs from [facility] done on 02/09/12: TSH 0.13 Free T4 1.30 Patient states her tremulousness is getting worse again and she is having heat intolerance since stopping her methimazole. We discussed radio-iodine ablation vs. Restarting methimazole. She feels shewould like to try the methimazole again prior to considering Ra-I. Called in 2.5 mg daily and will get repeat labs in March. * Telephone Encounter - Nicky Baumann RN - 02/10/2012 8:35 AM EDT Please call this patient with the results of her recent labwork. 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
--- OUTSIDE RECORDS SUMMARY | 2024-06-06 17:46 | XMS_ITS | Encounter Summary ---
Author Organization [facility] Address [facility] [place] [address] Care Team Providers Care Director Medical Safety Name Role Phone Justina Menendez APRN Primary Care Provider [phone] Reason for Visit * Reason Onset Date Comments Labs Only 03/14/2012 Encounter Details Date Type Department Care Team (Late st Contact Info) Description 03/14/2012 Telephone [place] [address] Nicky Baumann [facility] [place] [address] Labs Only Social History Tobacco Use Types [...] * Telephone Encounter - Bhakti Warner - 03/15/2012 9:07 AM EDT TSH 0.01, Free T4 1.41 Pt states having more tremor and heat intolerance. She and her mom have discussed it and she feels she would like to do definitive radioactive iodine ablation at this time. Will increase Methimazole to 10 mg daily and get repeat T3/Free T4 in 10 days and then likely can reduce methimazole to 5 mg daily. Will set up for I-131 uptake followed by ablation dose the next day for here at [facility]. She knows she will need test and will need to be off her MMI for 5-7 days prior to uptake and treatment. * Telephone Encounter - Nicky Baumann RN - 03/14/2012 4:36 PM EDT This patient wants you to call her with lab results. [phone] documented in this encounter Plan of Treatment Not on file documented as of this encounter Results * NM I-131cap ther [...] condition. Impression Therapy for hyperthyroidism administered. 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
--- OUTSIDE RECORDS SUMMARY | 2024-06-06 17:46 | XMS_ITS | Encounter Summary ---
Author Organization [facility] Address [facility] [place] [address] Care Team Providers Care Greensman Name Role Phone Justina Menendez APRN Primary Care Provider [phone] Reason for Visit * Reason Onset Date Comments Follow-up 05/02/2012 Encounter Details Date Type Department Care Team (Late st Contact Info) Description 05/02/2012 Telephone [place] [address] Bhakti Warner MD [facility] [place] [address] Follow-up Social History Tobacco Use Types Packs/Day Years [...] * Telephone Encounter - Bhakti Warner - 05/02/2012 2:27 PM EDT Spoke to patient. She had ablation for Graves on 04/27. Feeling well and will wean and stop her Atenolol in about 10-140 days. She has labs in hand to do at [facility] prior to her appt with Dr. Sesay on 05/31/12. documented in this encounter Plan of Treatment Not on file documented as of this encounter Visit Diagnoses Not on filedocumented in this encounter Care Teams Greensman Relationship Specialty Start Date End Date Justina Menendez APRN [address] [place] [address] PCP - General 12/30/11 01/13/19 documented as of this encounter
--- OUTSIDE RECORDS SUMMARY | 2024-06-06 17:47 | XMS_ITS | Encounter Summary ---
Author Organization [facility] Address [facility] [place] [address] Care Team Providers Care Environmental Emergencies Planner Name Role Phone Teresa Jackson MD Primary Care Provider [phone] Encounter Details Date Type Department Care Team (Latest Contact Info) Description 12/15/2010 9:59 AM EST - 12/15/2010 11:59 PM EST [place] [address] Jasmin Monreal MD [facility] [place] [address] Discharge Disposition: Home Social History Tobacco Use Types Packs/Day Years Used Date Smoking Tobacco: Never Assessed Sex and Gender Information Value Date Recorded Sex Assigned at Not on file Gender Identity Not on file Sexual Orientation Not on file documented as of this encounter Medications at Time of Discharge Medication Sig Dispensed Refills Start Date End Date ibuprofen (ADVIL) 200 mg tablet 1 RIZATRIPTAN BENZOATE (MAXALT ORAL) 201001/23/2019 CYPROHEPTADINE HCL (CYPROHEPTADINE ORAL) 12/15/2010 05/31/2012 NORETHINDRONE ACETATE ORAL 12/15/2010 0 05/31/2012 documented as of this encounter Plan of Treatment Not on file documented as of this encounter Procedures Procedure Name Priority Date/Time Associated Diagnosis Comments THYROID STIMULATING IMMUNOGLOBULIN-GAIL Routine 12/15/2010 10:24 AM EST THYROID PEROXIDASE ANTIBODY Routine 12/15/2010 10:24 AM EST T3, FREE Routine 12/15/2010 10:24 AM EST TSH Routine 12/15/2010 10:24 AM EST T4, FREE Routine 12/15/2010 10:24 AM EST documented in this encounter Results * (ABNORMAL) THYROID STIMULATING IMMUNOGLOBULIN-FAJARDO (12/15/2010 10:24 AM EST) TSI-Sells 1.7(H) <=1.3 TSI index [facility] Comment: Test Performed by: [facility] Dpt of Lab Med and Pathology [address] [place] [address] Electric Motor Assembler And Tester: Giancarlo Guerrero III, M.D. Blood specimen (specimen) 12/15/2010 10:24 AM EST 12/15/2010 11:42 AM EST Bhakti Warner MD IMMUNOLOGY ORDERABLE S Performing Organization Address City/[facility] Co de Phone Number [facility] * (ABNORMAL) THYROID PEROXIDASE ANTIBODY (12/15/2010 10:24 AM EST) Thyroperox Ab 76(H) <=34 IU/mL [facility] Blood specimen (specimen) 12/15/2010 10:24 AM EST 12/15/2010 2:29 PM EST Bhakti Warner MD IMMUNOLOGY ORDERABLE S Performing Organization Address City/[facility] Co de Phone Number [facility] * (ABNORMAL) T3, FREE (12/15/2010 10:24 AM EST) T3, Free 5.3(H) 2.0 - 3.5 pg/mL [facility] Comment: Test Performed by: [facility] [address], [place] [address] Electric Motor Assembler And Tester: Denise Perkins, Ph.D. Blood specimen (specimen) 12/15/2010 10:24 AM EST 12/15/2010 11:41 AM EST Bhakti Warner MD CHEMISTRY ORDERABLES Performing Organization Address City/[facility] Co de Phone Number [facility] * (ABNORMAL) T4, FREE (12/15/2010 10:24 AM EST) Free T4 1.66(H) 0.90 - 1.60 ng/dL [facility] Blood specimen (specimen) 12/15/2010 10:24 AM EST 12/15/2010 10:36 AM EST Bhakti Warner MD CHEMISTRY ORDERABLES Performing Organization Address [facility] Phone Number [facility] * (ABNORMAL) TSH (12/15/2010 10:24 AM EST) TSH 0.03(L) 0.27 - 4.20 mcIU/mL [facility] Comment: Cord Blood Reference Range: ??0.35 23.00 uIU/mL Blood specimen (specimen) 12/15/2010 10:24 AM EST 12/15/2010 10:36 AM EST Bhakti Warner MD CHEMISTRY ORDERABLES Performing Organization Address [facility] Co ms Phone Number [facility] documented in this encounter Visit Diagnoses Not on filedocumented in this encounter Care Teams Environmental Emergencies Planner Relationship Specialty Start Date End Date Teresa Jackson MD [address] [place] [address] PCP - General 12/15/10 12/29/11 documented as of this encounter
--- OUTSIDE RECORDS SUMMARY | 2024-06-06 17:47 | XMS_ITS | Encounter Summary ---
Author Organization [facility] Address [facility] [place] [address] Care Team Providers Care Account Supervisor Name Role Phone Teresa Jackson MD Primary Care Provider [phone] Encounter Details Date Type Department Care Team (Late st Contact Info) Description 12/15/2010 9:00 AM EST Office Visit [place] [address] Bhakti Warner MD [facility] [address] [place] [address] Social History Tobacco Use Types Packs/Day Years Used Date Smoking Tobacco: Never Assessed Sex and Gender Information Value Date Recorded Sex Assigned at Not on file Gender Identity Not on file Sexual Orientation Not on file documented as of this encounter Plan of Treatment Not on file documented as of this encounter Visit Diagnoses Not on filedocumented in this encounter Care Teams Account Supervisor Relationship Specialty Start Date End Date Teresa Jackson MD [address] [place] [address] [place] [address] PCP - General 12/15/10 12/29/11 documented as of this encounter
--- OUTSIDE RECORDS SUMMARY | 2024-06-06 17:47 | XMS_ITS | Encounter Summary ---
Author Organization [facility] Address [facility] [place] [address] Care Team Providers Care Assessment Clinician Name Role Phone Teresa Jackson MD Primary Care Provider [phone] Reason for Visit * Reason Comments Graves' Disease Encounter Details Date Type Department Care Team (Late st Contact Info) Description 02/23/2011 11:00 AM EDT Office [place] [address] Bhakti Warner MD [facility] DR [place] [address] Grave's disease (Primary Dx) Discharge Disposition: Home Social History Tobacco Use Types Packs/Day Years Used Date Smoking Tobacco: Never Smokeless Tobacco: Never Tobacco Cessation:Counseling Given: No Alcohol Use Standard Drinks/Week Comments Not Asked 0 (1 standard drink = 0.6 oz pur e alcohol) Sex and Gender Information Value Date Recorded Sex Assigned at Not on file Gender Identity Not on file Sexual Orientation Not on file documented as of this encounter Last Filed Vital Signs Vital Sign Reading Time Taken Comments Blood Pressure 105/62 02/23/2011 11:02 AM EDT Pulse 65 02/23/2011 11:02 AM EDT Temperature - - Respiratory Rate - - Oxygen Saturation - - Inhaled Oxygen Concentration - - Weight 66.5 kg (146 lb 9.6 oz) 02/23/2011 11:02 AM EDT Height - - Body Mass Index - - documented in this encounter Progress Notes * Jasmin Monreal MD - 02/23/2011 8:28 PM EDT I saw this patient with Dr. Warner. I reviewed the bradshaw portions of the history and physical exam, and reviewed pertinent lab data. I answered all patient questions. I was involved in all medical decision making and agree with this plan. Patient with Graves' disease responding well to methiazole. * Bhakti Warner - 02/23/2011 2:30 PM EDT Subjective: Patient ID: Darcie Gonzalez is a 20 y.o. female. HPI Darcie Gonzalez is a 20 y.o. female referred here in December 2010 for abnormal thyroid functiontests. She was seen at the local [facility] where a screening TSH was noted to be low at 0.18. This was done due to some symptoms she has been experiencing for the last 6 months. These included new insomnia, heat and cold intolerance, increased appetite without weight loss or gain. Hand tremors and heart racing were intermittent but seem to be task- associated. 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 She noted anxiety but had attributed this to the fact that she was going to school full-time and also working close to full-time. Her letter of credit document examiner then ran some additional tests which were remarkable for upper limit of normal T4 at12.2, slight elevation of T3 at 202, and normal Free T4 of 0.99. Her thyroid gland was normal in size and we repeated her TFT's which Showed low TSH of 0.03, elevated Free T4 of 1.66, elevated Free T3 of 5.3, positive TSI of 1.7 and positive anti-TPO antibody titre of 76. She was started on Methimazole 10 mg po daily for mild Graves' disease. One month later, her TSH was <0.01, Free T4 of 1.32, and Free T3 of 5.0. Her Methimazole was increased to 15 mg po daily. She had repeat labs done on 02/21/11 and TSH is 0.01, Free T4 0.95, and Total T3 150. She feels her tremor and heart-racing have greatly improved. She is sleeping better and appetite is more normal. Review of Systems All other systems reviewed and are negative. Allergies: NKDA Family History: Maternal aunt with Chuyita's. Maternal great-grandmother had Graves'. 2 maternal great-aunts had hyperthyroidism. Mother has empty sella syndrome from intracranial HTN. Social history: Works full-time as [employer] at [employer]. Also studying [employer] administration full-time. Non-smoker and non-drinker. Lives with parents in [facility]. Objective: Physical Exam Constitutional: She appears well-developed and well-nourished. HENT: Head: Normocephalic and atraumatic. Eyes: Conjunctivae are normal. Pupils are equal, round, and reactive to light. No lid lag. Neck: Normal range of motion. Neck supple. No thyromegaly present. Cardiovascular: Normal rate and regular rhythm. No murmur heard. Pulmonary/Chest: Effort normal and breath sounds normal. Abdominal: Soft. Neurological: She displays normal reflexes. No tremor present Skin: Skin is warm. Psychiatric: She has a normal mood and affect. Assessment and Plan: Graves' disease: Now euthyroid by TFT's. Her TSH is still suppressed as I would expect it to be. Will continue on Methimazole 15 mg po daily. The fact that her disease is responding so nicely to low-dose Methimazole makes me optimistic that she may achieve remission. She is on OCP and does not planto have children. If she remained hyperthyroid after 1 year, we would recommend I-131 ablation as we don't like to continue anti-thyroid meds in a patient that may become eventually. She will get repeat TFT's in 4-6 weeks, at which time, we may be able to decrease her dose of Methimazole gradually. She is again warned of risks of agranulocytosis and would contact me or her PCP if unexplained fever or sore throat for urgent CBC. Patient seen and discussed with Dr. Monreal. Bhakti Warner MD Endocrinology Fellow Cc: Teresa Jackson documented in this encounter Procedure Notes * Provider, Scanning - 02/28/2011 11:59 AM EDTAssociated Order(s): SCAN DOC: LAB documented in this encounter Plan of Treatment Not on file documented as of this encounter Procedures Procedure Name Priority Date/Time Associated Diagnosis Comments LAB SCAN 02/28/2011 11:59 AM EDT documented in this encounter Results * SCAN DOC: LAB (02/28/2011 11:59 AM EDT) Narrative 02/28/2011 11:59 AM EDT Procedure Note Provider, Scanning - 02/28/2011 11:59 AM EDT Scanning Provider MEDIA MGR SCAN EXT O RDR/RSLT documented in this encounter Visit Diagnoses Diagnosis Grave's disease- Primary Toxic diffuse goiter without mention of thyrotoxic crisis or storm documented in this encounter Care Teams Assessment Clinician Relationship Specialty Start Date End Date Teresa Jackson MD [address] [place] [address] PCP - General 12/15/10 12/29/11 documented as of this encounter
--- OUTSIDE RECORDS SUMMARY | 2024-06-06 17:47 | XMS_ITS | Encounter Summary ---
Author Organization [facility] Address [facility] [place] [address] Care Team Providers Care Air Control Electronics Operator Name Role Phone Teresa Jackson MD Primary Care Provider [phone] Reason for Visit * Reason Onset Date Comments Results 08/26/2011 Encounter Details Date Type Department Care Team (Late st Contact Info) Description 08/26/2011 Telephone [place] [address] [facility] [place] [address] Results Social History Tobacco Use Types Packs/Day [...] * Telephone Encounter - Bhakti Warner - 08/26/2011 11:19 AM EDT Labs from 08/24/11received: TSH 4.87 Total T3 108 Free T4 0.80 Left message to decrease Methimazole from 5 mg to 2.5 mg po daily and get repeat TSH and Free T4 in2 months. Sent lab slip. documented in this encounter Plan of Treatment Not on file documented as of this encounter Visit Diagnoses Not on filedocumented in this encounter Care Teams Air Control Electronics Operator Relationship Specialty Start Date End Date Teresa Jackson MD [address] [place] [address] [place] [address] PCP - General 12/15/10 12/29/11 documented as of this encounter
--- OUTSIDE RECORDS SUMMARY | 2024-06-06 17:47 | XMS_ITS | Encounter Summary ---
Author Organization [facility] Address [facility] [place] [address] Care Team Providers Care Lepidopterist Name Role Phone Teresa Jackson MD Primary Care Provider [phone] Reason for Visit * Reason Onset Date Comments Thyroid Problem 10/07/2011 Encounter Details Date Type Department Care Team (Late st Contact Info) Description 10/07/2011 Tele[place] [address] Bhakti Warner MD [facility] [place] [address] Thyroid Problem Social History Tobacco Use Types [...] * Telephone Encounter - Bhakti Warner - 10/07/2011 3:01 PM EST TSH 0.60 Free T4 0.93 Total T3 pending Left message for patient. Symptoms are likely not due to thyroid and should see PCP if they persist. * Telephone Encounter - Socorro Martinez LPN - 10/07/2011 9:38 AM EST Called patient at which time message from Dr Warner was read to her. Patient states she will go today before work or on her lunch break. Confirmation received on fax * Telephone Encounter - Bhakti Warner - 10/07/2011 9:19 AM EST She should have TSH, Free T4, Total T3 done today or Monday. Dx is Graves' disease. If doing today,could you call [facility] for the results? * Telephone Encounter - Socorro Martinez LPN - 10/07/2011 8:56 AM EST Patient calls hands shaking,yesterday heart beating really fast, had bad anxiety attack. Symptoms starting today.Taking MMI 2.5 mg daily. Also patient states she gets really bad migraines lately. Much worse then they have been. Is askingif it could have anything to do with what is going on with her thyroid. Will be seeing neurologist next week. Lab slip to be faxed to [facility]. * Telephone Encounter - Socorro Martinez LPN - 10/07/2011 8:50 AM EST Message on endo nurse line from 10/06/11 at 12 PM I have not been feeling good for a couple of days. Should I have some lab work done to see if my levels are off again? You can leave me a message on my cell phone. I am at work. Called patient left message for patient to call [phone] and ask legal administrative secretary to let me know she is calling. I would like to know her symptoms. documented in this encounter Plan of Treatment Not on file documented as of this encounter Visit Diagnoses Not on filedocumented in this encounter Care Teams Lepidopterist Relationship Specialty Start Date End Date Teresa Jackson MD [address] [place] [address] [place] [address] PCP - General 12/15/10 12/29/11 documented as of this encounter
--- OUTSIDE RECORDS SUMMARY | 2024-06-06 17:47 | XMS_ITS | Encounter Summary ---
Author Organization [facility] Address [facility] [place] [address] Care Team Providers Care Floor Director Name Role Phone Teresa Jackson MD Primary Care Provider [phone] Reason for Visit * Reason Onset Date Comments Other 07/06/2011 Encounter Details Date Type Department Care Team (Late st Contact Info) Description 07/06/2011 Telephone [place] [address] Bhakti Warner MD [facility] [place] [address] Other Social History Tobacco Use Types Packs/Day [...] * Telephone Encounter - Bhakti Warner - 07/12/2011 1:12 PM EDT Labs from 07/08/11: TSH 2.43 Free T4 0.97 Spoke to patient. She had been feeling shaky so had increased from 5 mg to 10 mg daily on her Methimazole about 1 week prior to labs being drawn. I have asked her to decrease back down to 5 mg po daily and let me know if sx recur. Would get repeat Free T4 and TSH at that time prior to changing dosages. Lab slip mailed to her. * Telephone Encounter - Socorro Martinez LPN - 07/08/2011 3:52 PM EDT Patient calls at which time she states she will go to hospital in [facility] tomorrow.has lab slip that Dr Warner sent home with her. * Telephone Encounter - Socorro Martinez LPN - 07/08/2011 3:48 PM EDT Called patient not at work, left message on cell voice mail for patient to return my call. * Telephone Encounter - Bhakti Warner - 07/06/2011 11:30 AM EDT She can get her labs done this week if not feeling well. I am going on vacation on 07/14 so she should have them done prior to that and call Monday if she has not heard from me. * Telephone Encounter - Socorro Martinez LPN - 07/06/2011 11:26 AM EDT Message on endo nurse from patient I was wondering if Dr Warner thinks I should get my labs done sooner then we discussed. I am not sleeping at night but am exhausted during the day and my headaches are coming back. Forward to Dr Warner documented in this encounter Plan of Treatment Not on file documented as of this encounter Visit Diagnoses Not on filedocumented in this encounter Care Teams Floor Director Relationship Specialty Start Date End Date Teresa Jackson MD [address] [address] PCP - General 12/15/10 12/29/11 documented as of this encounter
--- OUTSIDE RECORDS SUMMARY | 2024-06-06 17:47 | XMS_ITS | Encounter Summary ---
Author Organization [facility] Address [facility] [place] [address] Care Team Providers Care Hydrochloric Acid Operator Name Role Phone Teresa Jackson MD Primary Care Provider [phone] Encounter Details Date Type Department Care Team (Late st Contact Info) Description 12/15/2010 9:30 AM EST Office [place] [address] Piter Alicia MD [facility] [place] [address] Discharge Disposition: Home Social History Tobacco Use Types Packs/Day Years Used Date Smoking Tobacco: Never Assessed Sex and Gender Information Value Date Recorded Sex Assigned at Not on file Gender Identity Not on file Sexual Orientation Not on file documented as of this encounter Procedure Notes * Provider, Niya - 02/08/2011 12:22 PM EDTAssociated Order(s): LAB SCAN documented in this encounter Plan of Treatment Not on file documented as of this encounter Procedures Procedure Name Priority Date/Time Associated Diagnosis Comments LAB SCAN 02/08/2011 12:22 PM EDT documented in this encounter Results * LAB SCAN (02/08/2011 12:22 PM EDT) Narrative 02/08/2011 12:22 PM EDT Procedure Note ProviderNiya - 02/08/2011 12:22 PM EDT Scanning Provider MEDIA MGR SCAN EXT O RDR/RSLT documented in this encounter Visit Diagnoses Not on filedocumented in this encounter Care Teams Hydrochloric Acid Operator Relationship Specialty Start Date End Date eTresa Jackson MD [address] [place] [address] [place] [address] PCP - General 12/15/10 12/29/11 documented as of this encounter
--- OUTSIDE RECORDS SUMMARY | 2024-06-06 17:47 | XMS_ITS | Encounter Summary ---
Author Organization [facility] Address [facility] [place] [address] Care Team Providers Care Ware Carrier Name Role Phone Teresa Jackson MD Primary Care Provider [phone] Reason for Visit * Reason Onset Date Comments Labs Only 02/09/2011 Encounter Details Date Type Department Care Team (Late st Contact Info) Description 02/09/2011 Tele[place] [address] Bhakti Warner MD [facility] [place] [address] Labs Only Social History Tobacco Use Types Packs/Day Years Used Date Smoking Tobacco: Never Assessed Sex and Gender Information Value Date Recorded Sex Assigned at Not on file Gender Identity Not on file Sexual Orientation Not on file documented as of this encounter Miscellaneous Notes * Telephone Encounter - Bhakti Warner - 02/10/2011 8:24 AM EDT Labs ordered documented in this encounter Plan of Treatment Not on file documented as of this encounter Visit Diagnoses Diagnosis Hyperthyroidism- Primary Thyrotoxicosis without mention of goiter or other cause, without mention of thyrotoxic crisis or storm documented in this encounter Care Teams Ware Carrier Relationship Specialty Start Date End Date Teresa Jackson MD [address] [place] [address] [place] [address] PCP - General 12/15/10 12/29/11 documented as of this encounter
--- OUTSIDE RECORDS SUMMARY | 2024-06-06 17:47 | XMS_ITS | Encounter Summary ---
Author Organization [facility] Address [facility] [place] [address] Care Team Providers Care Therapy Teacher Name Role Phone Teresa Jackson MD Primary Care Provider [phone] Reason for Visit * Reason Comments Thyroid Problem Encounter Details Date Type Department Care Team (Late st Contact Info) Description 06/17/2011 9:00 AM EDT Office [place] [address] Bhakti Warner MD [facility] [place] [address] Grave's disease (Primary Dx) Discharge Disposition: Home [...] Sign Reading Time Taken Comments Blood Pressure 117/65 06/17/2011 9:58 AM EDT Pulse 69 06/17/2011 9:58 AM EDT Temperature - - Respiratory Rate - - Oxygen Saturation - - Inhaled Oxygen Concentration - - Weight 68.6 kg (151 lb 3.2 oz) 06/17/2011 9:58 A M EDT Height 162.6 cm (5' 4) 06/17/2011 9:58 AM EDT Body Mass Index 25.95 06/17/2011 9:58 AM EDT documented in this encounter Progress Notes * Jasmin Monreal MD - 06/17/2011 10:42 AM EDT I was the attending physician supervising the fellow in the above care. For the purposes of billing, the resident provided the care. * Bhakti Warner Yovany - 06/17/2011 10:13 AM EDT Patient ID: Darcie Gonzalez is a 21 y.o. female here for f/u of Graves' disease HPI Darcie Gonzalez is a 21 y.o. female referred here in December 2010 for abnormal thyroid functiontests. 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 She noted anxiety but had attributed this to the fact that she was going to school full-time and also working close to full-time. Her reinforcing steel erector then ran some additional tests which were [...] repeat labs done on 02/21/11 and TSH was 0.01, Free T4 0.95, and Total T3 150, then had repeat labs done in April which showed TSH of 12 with low Free T4 and Methimazole was decreased to 10 mg daily. She felt tired when herTSH was 12, now states she feels well. Denies neck swelling, constipation, fatigue, cold intolerance. Review of Systems All other systems reviewed and are negative. Past Medical History Diagnosis Date ??? Grave's disease 02/23/2011 ??? Migraine 02/23/2011 Current outpatient prescriptions ordered prior to encounter Medication Sig Dispense Refill ??? RIZATRIPTAN BENZOATE (MAXALT ORAL) ??? CYPROHEPTADINE HCL (CYPROHEPTADINE ORAL) ??? ibuprofen (ADVIL) 200 mg tablet ??? NORETHINDRONE ACETATE ORAL No Known Allergies Objective: Physical Exam BP 117/65 Pulse 69 Ht 162.6 cm (5' 4) Wt 68.584 kg (151 lb 3.2 oz) BMI 25.95 kg/m2 Constitutional: She appears well-developed and well-nourished. HENT: [...] She has a normal mood and affect. Labs: 06/13/11 TSH 4.08 Free T4 0.85 Free T3 2.7 Assessment and Plan: Graves' disease: Now euthyroid by TFT's. As her TSH is still elevated and T4 and T3 are at lower limit of normal will decrease Methimazole to 5 mg po daily. The fact that her disease is responding sonicely to low-dose Methimazole makes me optimistic that she may achieve remission. She is on OCP and does not plan to have children. If she remained hyperthyroid after 1 year, we would recommend I-131 ablation as we don't like to continue anti-thyroid meds in a patient that may become eventually. She will get repeat TFT's in 2 months in [facility], at which time, we may be able to decrease her dose of Methimazole again. She is again warned of risks of agranulocytosis and would contact me orher PCP if unexplained fever or sore throat for urgent CBC. F/u in 6 months here in the office. Patient discussed with Dr. Monreal. Bhakti Warner MD Endocrinology Fellow documented in this encounter Plan of Treatment Not on file documented as of this encounter Visit Diagnoses Diagnosis Grave's disease- Primary Toxic diffuse goiter without mention of thyrotoxic crisis or storm documented in this encounter Care Teams Therapy Teacher Relationship Specialty Start Date End Date Teresa Jackson MD [address] [place] [address] PCP - General 12/15/10 12/29/11 documented as of this encounter
--- OUTSIDE RECORDS SUMMARY | 2024-06-06 17:47 | XMS_ITS | Encounter Summary ---
Author Organization [facility] Address [facility] [place] [address] Care Team Providers Care Local Company Tanker Driver Name Role Phone Teresa Jackson MD Primary Care Provider Reason for Visit * Reason Onset Date Comments Results 04/22/2011 Encounter Details Date Type Department Care Team (Late st Contact Info) Description 04/22/2011 [place]phone [place] [address] Bhakti Warner MD [facility] [place] [address] Results Social History Tobacco Use Types Packs/Day Years Used Date Smoking Tobacco: Never Smokeless Tobacco: Never Alcohol Use Standard Drinks/Week Comments Not Asked 0 (1 standard drink = 0.6 oz pur e alcohol) Sex and Gender Information Value Date Recorded Sex Assigned at Not on file Gender Identity Not on file Sexual Orientation Not on file documented as of this encounter Miscellaneous Notes * Telephone Encounter - Bhakti Warner - 04/22/2011 9:51 AM EDT TSH 12.06 Free T4 0.77 Free T3 2.8 Left message for patient that we can reduce her Methimazole from 15 to 10 mg po daily. Will get repeat labs in June when she sees me here at [facility]. documented in this encounter Plan of Treatment Not on file documented as of this encounter Visit Diagnoses Diagnosis Grave's disease- Primary Toxic diffuse goiter without mention of thyrotoxic crisis or storm documented in this encounter Care Teams Local Company Tanker Driver Relationship Specialty Start Date End Date Teresa Jackson MD [address] [place] [place] [address] PCP - General 12/15/10 12/29/11 documented as of this encounter
--- NOTE | 2024-06-06 18:00 | DI.CT_ITS ---
Exam(s) CT ABDOMEN PELVIS W EXAM: CT ABDOMEN PELVIS W CLINICAL HISTORY: rlq abdominal pain. TECHNIQUE: Imaging Protocol: Axial computed tomography images with coronal and sagittal reformatted images were created and reviewed CONTRAST MATERIAL: Intravenous: Omnipaque 350 Contrast volume:100 ml Oral: no COMPARISON: No exams were available for comparison FINDINGS: ABDOMEN and PELVIS: Lung Bases: No acute findings. Liver: Normal density. No suspicious mass. Gallbladder and biliary tract: No radiodense calculus. No biliary dilation. Pancreas: Normal density. No abnormal calcifications or inflammatory process. No evidence of mass. Spleen: Normal. Kidneys: Normal size, contour and axis. No radiodense stones. No obstructive uropathy. No suspicious masses seen. Adrenal glands: No masses seen. Vasculature: Abdominal aorta non-dilated. Soft tissues: Unremarkable. Bladder: No gross wall thickening. No calculi.No focal mass. Bowel: No obstruction. No bowel wall thickening. Appendix normal. Peritoneal cavity: No ascites. No focal collection. No mesenteric inflammatory response. Bones: Unremarkable for age. Reproductive organs: Unremarkable. Lymph nodes: No pathologically enlarged lymph nodes. IMPRESSION:: No acute abnormality in the abdomen or pelvis. RADIATION DOSE DELIVERED: Total DLP DATA REPOSITORY: All CT scans at this facility are submitted to the National Radiology Data Registry (NRDR) Dose Index Registry (DIR) with the [employer] (ACR). RADIATION OPTIMIZATION: All CT scans at this facility use at least one of these dose optimization te chniques: automated exposure control; mA and/or kV adjustment per patient size (includes targeted exa ms where dose is matched to clinical indication); or iterative reconstruction.
[2024-06-06 18:10] VITALS: BP 141/100; PULSE 87; RESP 16; TEMP 36.9; O2SAT 100
--- NOTE | 2024-06-06 18:23 | ED.GENADUL_ITS ---
Discharge Plan Disposition Patient Disposition: Home Discharge Details Clinical Impression: Viral gastroenteritis, Abdominal pain Primary Care Provider: Justina Menendez ED Provider: Davey Summers Home Meds and New Rx's Prescriptions: No Action levothyroxine 175 mcg tablet See Rx Instructions .ROUTE .COMPLEX Qty: 90 3RF Dose Instruction: TAKE ONE TABLET BY MOUTH EVERY DAY Rx Instructions: TAKE ONE TABLET BY MOUTH EVERY DAY bupropion HCl 150 mg tablet extended release 24 hr See Rx Instructions .ROUTE .COMPLEX Qty: 90 3RF Dose Instruction: TAKE 1 TABLET BY MOUTH EVERY MORNING Rx Instructions: TAKE 1 TABLET BY MOUTH EVERY MORNING Discharge Instructions Instructions: Viral gastroenteritis in adults, Abdominal Pain, Adult ED Additional Instructions: You were seen in the emergency department for abdominal pain and diarrhea. We performed labs, and urine test that were unremarkable. Your CAT scan of your abdomen was unremarkable as well. You likely have a viral GI bug or gastroenteritis. He can take [id number] Imodium and Pepto-Bismol to help with your symptoms per bottle directions. Follow-up with your primary care doctor. Please return here for worsening abdominal pain, intractable nausea or vomiting, black or bloody stools, or if you have diarrhea that becomes so bad you are becoming dehydrated. If you have lingering diarrhea you could follow-up with your primary care doctor for additional testing. HPI General Date/Time Provider Initiated Documentation: 06/06/24 18:07 . HPI Narrative: 34-year-old female presents with abdominal pain and diarrhea. Woke up this morning with the abdominal pain. Has had diarrhea since. Watery in nature. Says the abdominal pain has not gone away. No urinary symptoms. No black or bloody stools. No recent antibiotic use. No recent travel. No recent abnormal food or drinking sources. She was worried and came here. Related Data Home Medications ?Medication ?Instructions ?Recorded ?Confirmed bupropion HCl 150 mg 24 hr tablet, See Rx Instructions .Route 11/01/23 06/06/24 extended release .COMPLEX #90 tabs levothyroxine 175 mcg tablet See Rx Instructions .Route 12/25/23 06/06/24 .COMPLEX #90 tabs Previous Rx's ?Medication ?Instructions ?Recorded bupropion HCl 150 mg 24 hr tablet, See Rx Instructions .Route 11/01/23 extended release .COMPLEX #90 tabs levothyroxine 175 mcg tablet See Rx Instructions .Route 12/25/23 .COMPLEX #90 tabs Allergies Allergy/AdvReac Type Severity Reaction Status Date / Time rizatriptan benzoate (From AdvReac Unknown Neck and Verified 06/06/24 17:41 Maxalt) jaw pain topiramate AdvReac Unknown stomach Verified 06/06/24 17:41 pain General Stated Complaint: Abd Prob BOBBY: 3 Review of Systems Constitutional Constitutional: Denies chills, Denies fever(s) and Denies headache(s) Eyes Eyes: Denies change in vision ENT Ears, Nose, Mouth, and Throat: Denies headache(s) and Denies odynophagia Cardiovascular Cardiovascular: Denies chest pain and Denies dyspnea Respiratory Respiratory: Denies dyspnea Gastrointestinal Gastrointestinal: Reports abdominal pain, Reports diarrhea, Reports nausea, Denies odynophagia and Denies vomiting Genitourinary Genitourinary: Denies dysuria Musculoskeletal Musculoskeletal: Denies myalgias Integumentary/Breasts Skin/Breast: Denies changing lesions Neurologic Neurologic: Denies behavioral changes and Denies headache(s) Psychiatric Psychiatric: Denies behavioral changes Endocrine Endocrine: Denies heat intolerance Hematologic/Lymphatic Hematologic/Lymphatic: Denies lymphadenopathy Exam Const General: cooperative Nutritional Appearance: average body habitus Orientation: alert, awake and oriented x3 HENMT Head: normal to inspection Ears: external ears normal Mouth: moist mucous membranes Eyes Pupils: PERRL EOM: EOM intact bilaterally and No nystagmus Neck Neck: full ROM and no tracheal deviation Chest Chest: normal inspection of the chest Resp Auscultation: clear to auscultation bilaterally Cardio Rate: regular rate Rhythm: regular rhythm GI Inspection: normal to inspection Palpation: soft, no guarding, not rigid and other (Mildly tender throughout with no guarding.) Back/Spine/Pelvis Back: No no CVA tenderness Thoracic/Lumbar Spine: thoracic and lumbar spine normal to inspection Skin General skin exam: no rashes or lesions noted Neuro General: patient alert, patient awake and patient oriented x3 Cranial Nerves: CN's II-XI intact bilaterally, PERRL and no nystagmus Cognition: normal cognition Motor: muscle tone normal throughout and strength 5/5 throughout Sensory Exam: no sensory deficits noted Extrem General: normal to inspection Course Vital Signs Vital signs: Vital Signs Temperature 36.9 C 06/06/24 17:41 Pulse 87 06/06/24 17:41 Respiratory Rate 16 06/06/24 17:41 Blood Pressure 141/100 H 06/06/24 17:41 Pulse Oximetry 100 06/06/24 17:41 Temperature 36.9 C 06/06/24 18:10 Temperature Source Temporal Artery Scan 06/06/24 18:10 Pulse 87 06/06/24 18:10 Respiratory Rate 16 06/06/24 18:10 Respiratory Effort Normal, Non-Labored 06/06/24 17:45 Blood Pressure 141/100 H 06/06/24 18:10 Blood Pressure Position Sitting 06/06/24 18:10 Pulse Oximetry 100 06/06/24 18:10 Oxygen Delivery Method Room Air 06/06/24 18:10 Oxygen Flow Rate 0 06/06/24 18:10 Pain Level 7 06/06/24 18:10 Medical Decision Making This is a 34-year-old female who presents with nausea abdominal pain and diarrhea. Likely viral gastroenteritis. Could not rule out intra-abdominal abscess or obstruction as she did have tenderness throughout. CT abdomen pelvis is unremarkable. Sent broad labs to look for electrolyte or metabolic cause of the patient's symptoms and these are also unremarkable. Send biliary labs look for signs hepatitis, pancreatitis, or biliary obstruction and these were unremarkable as well. No anemia. No signs of UTI. She is not . Likely a viral gastroenteritis. Feels better after fluids and medications here. Will discharge with return precautions. Medical Records Medical records reviewed: Yes I reviewed the patient's medical records. Imaging Data Radiologic Study: Attestation: I personally reviewed and interpreted this imaging study as follows: Imaging: CT Scan (abdomen and pelvis) My impression: unremarkable Lab Data Lab results reviewed: Yes I reviewed the patient's lab results. Quality:SDOH Health Related Social Needs: No Data to Display PFSH All Active Problems Abdominal pain (Acute) Viral gastroenteritis (Acute) Migraine (Chronic) Pre-menstrual: Triptan, Flexeril PRN, Zofran PRN Hypothyroidism (Chronic 11/08/12) s/p Graves with radioactive iodine ablation 04/2012 Generalized anxiety disorder (Chronic) Medical History History of Graves' disease (~2011) S/p radioactive iodine ablation with 9.8 mCi of I-131 at [facility] in April 2012 Surgical History History of wisdom tooth extraction H/O radioactive iodine thyroid ablation (~04/2012) Family History Mother Depression Anxiety Father Essential hypertension Prediabetes Alcohol abuse Diabetes Sister No problems noted. Brother No problems noted. Daughter No problems noted. Daughter No problems noted. Maternal Grandfather No problems noted. Maternal Grandmother Essential hypertension Paternal Grandfather Heart disease Essential hypertension Paternal Grandmother Essential hypertension Social History Smoking/Tobacco Use Status: Never Second Hand Exposure: No Smoking risk assessment performed?: Yes Alcohol Intake: current Alcohol Intake frequency: holidays/special occasions only Drug use: Never Substance use type: does not use Adopted: No Caregiver/Support person: No Foster care: No Household members: spouse and children Housing: house Number of Children: 3 number of grandchildren: 0 Communication Needs: Corrective Lenses Education Level: college Details: Bachelor's Degree Do you need help understanding health information?: Never current occupation: Healthcare Educator Pets and animals: Yes Pets and animals: cat(s) and dog(s) Sexually active: Yes Do you think of yourself as: straight/heterosexual Current gender identity: female What is your relationship status?: How often do you talk on the phone with friends or family?: three or more times per week How often do you get together with friends or relatives?: once per week How often do you attend orthodoxy or catholic services?: decline to answer Do you belong to any clubs or organized social groups?: no Panel score (0-1 are the most socially isolated patients): 2 What type of physical activity do you participate in: none Duration: decline to answer Frequency: decline to answer Larisa/Caodaism: Scientology Special larisa needs: No Seatbelt use: always Helmet use: Yes Helmet use: always Drive intox or ride w/intox local hazmat driver: No Working smoke detector in home: Yes Fire extinguisher in home: Yes Carbon monox detector in home: Yes Do you feel safe at home: Yes Do you feel safe in your relationship?: Yes Victim of physical abuse: No Victim of emotional abuse: No Victim of sexual abuse: No Would you like helpful sources: No Female Reproductive History Menstrual control method: none History History 3 Para 3 Hx # Term Pregnancies 3 Multiple births 0 Hx # Pregnancies 0 Ectopic pregnancies 0 AB induced 0 Hx Number of Living Children 3 AB spontaneous 0 Past Pregnancies Del. Date GA/Weeks # Preg Succ Route Wgt Sex Labor Lgth Anesth esia Location Prov Complic 03/26/14 40 No vaginal 2806.603 g Female 36 hrs Th [place] 10/28/16 40 No vaginal 3090.098 g Female 24 hrs An ea 03/28/19 39 No vaginal 3090.098 g Male 24 hrs. 50 min. Kimberley Conner CNM Delivery Date: 10/28/16 Last Updated by: Jasmin Dickerson CNM GBS pos. Delivery Date: 03/28/19 Last Updated by: Ade Randle LPN spontaneous ROM induction- intrauterine growth retardation,indicated by testing-concern for hydronephrosis,disteded bladder,oligo
[2024-06-06 18:24] LABS: Abs Immature Grans 0.04 10^3/uL (0.0-0.06); Absolute Basophil Count 0.04 10^3/uL (0.0-0.2); Absolute Lymphocyte Count 1.22 10^3/uL (1.2-3.4); Absolute Monocyte Count 0.77 10^3/uL (0.1-0.8); Absolute Neutrophil Count 8.28 10^3/uL (1.2-6.7); Basophils % 0.4 %; HCT 41.5 % (36.0-46.0); HGB 13.9 g/dL (11.2-15.7); Immature Grans % 0.4 %; Lymphocytes % 11.7 %; MCH 28.3 pg (27.0-33.0); MCHC 33.5 % (32.0-36.0); MCV 84 fL (80-95); MPV 10.3 fL (8.0-11.0); Monocytes % 7.4 %; Neutrophils % 79.1 %; Platelet Count 262 10^3/uL (130-400); RBC 4.92 10^6/uL (3.93-5.22); RDW 12.1 % (11.7-14.6); RDW-SD 36.7 fL; WBC 10.45 10^3/uL (4.4-10.8)
[2024-06-06] MEDS: Ketorolac 30 MG/ML VIAL IVP (18:28)
[2024-06-06] MEDS: Lactated Ringers 1,000 ML 1000 ML IV (18:28)
[2024-06-06] MEDS: Ondansetron 4 MG/2 ML VIAL IVP (18:29)
[2024-06-06 18:43] LABS: ALT 31 U/L (14-59); AST 19 U/L (15-37); Alkaline Phosphatase 75 U/L (46-116); Anion Gap 10.2 mmol/L (3-11); BUN 11 mg/dL (7-18); Bilirubin, Total 0.34 mg/dL (0.2-1.0); CO2 25.8 mmol/L (21.0-32.0); CREATININE 0.8 mg/dL (0.55-1.02); Chloride 106 mmol/L (98-107); Estimated GFR 99.71 (mL/min/1.73m2); Glucose 129 mg/dL (74-106); Lipase 34 U/L (16-77); Magnesium 1.9 mg/dL (1.8-2.4); Potassium 4.2 mmol/L (3.5-5.1); Sodium 142 mmol/L (136-145); Total Protein 7.7 g/dL (6.4-8.2)
[2024-06-06 18:44] LABS: Bilirubin Negative (Negative); Blood Trace-intact (Negative); Clarity Clear (Clear); Glucose Negative (Negative); Ketones Negative (Negative); Leukocyte Esterase Negative (Negative); Nitrite Negative (Negative); Specific Gravity >= 1.030 (1.005-1.025); Urobilinogen 0.2 mg/dL (Up to 0.2); pH 5.5 (5-8)
[2024-06-06 18:48] LABS: Bacteria Rare HPF (Negative); C & S Indicated? No; Casts Negative LPF (Negative); Crystals Negative HPF (Negative); Epithelial Cells Few HPF (Negative); Mucus Negative (Negative); RBC 0-2 HPF (0-2); WBC Negative HPF (0-5)
[2024-06-06] MEDS: Normal Saline - Diluent 50 ML VIAL IJ (18:50)
[2024-06-06] MEDS: Omnipaque 350 MG/ML 100 ML BTL IJ (18:51)
[2024-06-06] MEDS: Normal Saline Flush 10 ML SYR IVP (20:00)
--- NOTE | 2024-06-06 20:00 | DI.VRAD_ITS ---
PROCEDURE INFORMATION: Exam: CT Abdomen And Pelvis With Contrast Exam date and time: 06/06/2024 6:48 PM Age: 34 years old Clinical indication: Other: Rlq abdominal pain TECHNIQUE: Imaging protocol: Computed tomography of the abdomen and pelvis with contrast. Contrast material: 350; Contrast volume: 100 ml; Contrast route: INTRAVENOUS (IV); COMPARISON: US OB 2-3 trimester 03/26/2019 12:06 PM FINDINGS: Liver: Normal. No mass. Gallbladder and biliary ducts: Gallbladder partially contracted. Pancreas: Normal. No ductal dilation. Spleen: Normal. No splenomegaly. Adrenal glands: Normal. No mass. Kidneys and ureters: There is mild right caliectasis and proximal hydroureter. No obstructing calculus seen. Stomach and bowel: Unremarkable. No obstruction. No mucosal thickening. Appendix: The appendix is well seen, within normal limits. Intraperitoneal space: Unremarkable. No free air. No significant fluid collection. Vasculature: Unremarkable. No abdominal aortic aneurysm. Lymph nodes: Unremarkable. No enlarged lymph nodes. Urinary bladder: Bladder not well distended. Reproductive: Unremarkable as visualized. Bones/joints: Unremarkable. No acute fracture. Soft tissues: Unremarkable. IMPRESSION: Minimal right caliectasis, uncertain etiology. No definite acute abnormality is seen to account for symptoms. Dictated and Authenticated by: Anahi Armas MD. Ordering:TAMIKO Mariscal MD
[2024-06-06 20:16] VITALS: BP 155/98; PULSE 70; RESP 20; TEMP 37.1; O2SAT 97
== END 2024-06-06 20:24 | disposition home or self-care (01) ==
PROVIDERS: Emergency Provider Student in an Organized Health Care Education/Training Program; PCP Nurse Practitioner Adult Health
DX: R10.31 Right lower quadrant pain (principal); R19.7 Diarrhea, unspecified; A08.4 Viral intestinal infection, unspecified
CPT/HCPCS: 36415; 80053; 81025; 83690; 96361; 96374; 96375; 99285; 74177; 81003; 81015; 83735; 85025; 99283; J1885; J2405; J3490

== ENCOUNTER 2024-12-17 03:19 | Outpatient (CLI) | payer BC, SELFPAY ==
[2024-12-17 07:31] LABS: HCT 41.4 % (36.0-46.0); HGB 13.7 g/dL (11.2-15.7); MCH 28.4 pg (27.0-33.0); MCHC 33.1 % (32.0-36.0); MCV 86 fL (80-95); MPV 9.8 fL (8.0-11.0); Platelet Count 213 10^3/uL (130-400); RBC 4.82 10^6/uL (3.93-5.22); RDW-SD 37.6 fL; WBC 6.48 10^3/uL (4.4-10.8)
[2024-12-17 08:25] LABS: ALT 26 U/L (14-59); AST 12 U/L (15-37); Albumin 3.7 g/dL (3.4-5.0); Alkaline Phosphatase 91 U/L (46-116); Anion Gap 5.2 mmol/L (3-11); BUN 12 mg/dL (7-18); Bilirubin, Total 0.37 mg/dL (0.2-1.0); CO2 30.8 mmol/L (21.0-32.0); CREATININE 0.9 mg/dL (0.55-1.02); Calculated LDL 96 mg/dL (<100); Chloride 106 mmol/L (98-107); Cholesterol 183 mg/dL (<200); Estimated GFR 86.57 (mL/min/1.73m2); Folate 13.3 ng/mL (8.6-20.0); Glucose 103 mg/dL (74-106); HDL Cholesterol 70 mg/dL (40-60); Potassium 4.3 mmol/L (3.5-5.1); Sodium 142 mmol/L (136-145); Total Protein 7.4 g/dL (6.4-8.2); Triglyceride 87 mg/dL (<150); Vitamin B12 761 pg/mL (193-986)
[2024-12-17 08:46] LABS: TSH (W/Ref FT4) < 0.01 uIU/mL (0.36-3.74)
[2024-12-17 08:47] LABS: FREE T4 1.51 ng/dL (0.76-1.46)
== END 2024-12-17 03:20 | disposition home or self-care (01) ==
LOC: LBO 03:19
PROVIDERS: PCP Nurse Practitioner Adult Health; Referring Provider Nurse Practitioner Adult Health; Visit Provider Nurse Practitioner Adult Health
DX: E03.8 Other specified hypothyroidism (principal); F41.1 Generalized anxiety disorder; R53.83 Other fatigue
CPT/HCPCS: 36415; 80053; 80061; 85027; 82607; 82746; 84439; 84443

== ENCOUNTER 2025-01-20 14:59 | Outpatient (REF) | payer BC, SELFPAY ==
--- NOTE | 2025-01-20 13:30 | PAPFT_PTH ---
PATIENT: Darcie Mccullough LOC: [facility] U#:[id number] AGE/SX: 34/F ROOM: RE01/20/[address]: Justina Menendez APRN : 1990 BED: DIS: 01/20/2025 SPEC #: [id number] RECD: 01/20/25 16:48 STATUS: SHELLIE REQ #: [id number] BERE: 01/20/25 13:[address]: Justina Menendez DEPT: [facility] Cytology RECD BY: Denise Santa Tissues: 1 - CX/ENDOCX FOR PAP SMEARS Procedures: PAP THIN PREP/UVM Screening HPV DNA PROBE Comments: [id number] (HPV 16 & 18/45)
== END 2025-01-20 15:00 | disposition home or self-care (01) ==
LOC: LBN 14:59
PROVIDERS: PCP Nurse Practitioner Adult Health; Visit Provider Nurse Practitioner Adult Health
DX: Z12.4 Encounter for screening for malignant neoplasm of cervix
CPT/HCPCS: 88142; 87624

== ENCOUNTER 2025-04-03 03:16 | Outpatient (CLI) | payer BC, SELFPAY ==
[2025-04-03 17:06] LABS: TSH (W/Ref FT4) < 0.01 uIU/mL (0.36-3.74)
[2025-04-03 17:39] LABS: FREE T4 1.31 ng/dL (0.76-1.46)
== END 2025-04-03 03:17 | disposition home or self-care (01) ==
LOC: LBO 03:16
PROVIDERS: PCP Nurse Practitioner Adult Health; Visit Provider Nurse Practitioner Adult Health
DX: E03.8 Other specified hypothyroidism (principal); R79.89 Other specified abnormal findings of blood chemistry
CPT/HCPCS: 36415; 84439; 84443